=== PATIENT | male | born 1940 | race Caucasian/White ===

== ENCOUNTER → 2018-01-29 | Outpatient (CLI) | payer MEDICARE ==
[~2018-01-29] MED LIST: IOPAMIDOL 370 MG/ML 200 ML INFUS..BTL INJ ONE; SODIUM CHLORIDE 0.9% 50ML 50 ML ONE
[2018-01-29 08:39] LABS: BLOOD UREA NITROGEN 19 mg/dL (7-26); BUN/CREATININE RATIO 23 (6-25); CREATININE, SERUM 0.84 mg/dL (0.72-1.25); EST GLOMERULAR FILTRATION RATE > 60 ML/MIN (60-)
--- NOTE | 2018-01-29 13:18 | Diagnostic Imaging Report ---
CTA of the abdomen and pelvis, with contrast. History: AAA. Comparison: 12/16/2016 Technique: Multidetector CT scanning of the abdomen and pelvis was performed from the level of the lung bases to the inferior pubic ramus, after intravenous administration of 100 cc of Isovue-370. No oral contrast was given. Scanning during the arterial phase was performed. Sagittal and coronal multiplanar reformations were obtained. 3-D postprocessing at a stand-alone workstation was also accomplished. Dose reduction strategy was utilized. DLP: 432.36 mGy-cm Discussion: Abdominal aorta and proximal branches: An infrarenal abdominal aortic aneurysm is present. The opacified lumen of the aneurysm is smaller than when compared to the previous study with more thickness and clot lining. The maximal diameter of the aneurysm measures 4.95 cm in the AP plane (previously at a similar level maximal AP dimension was 4.75 cm). The suprarenal abdominal aorta is within normal limits with patient admitting representative measurement as follows: 2.6 cm at the level of the diaphragmatic hiatus, 2.8 cm at the level of the celiac trunk, 2.4 cm the level of the SMA, and 2.2 cm at the level of the renal arteries. At the level of the renal arteries and below atherosclerotic plaque is present. The celiac trunk and SMA are patent. There is a replaced right hepatic artery. There are single renal arteries bilaterally which patent. The iliac and femoral arteries are normal in size and patent. The right common femoral artery measures 10.7 mm and the left measures 10.2 cm. Abdomen: The liver, gallbladder, biliary tree, spleen and pancreas are normal. Again noted is the left adrenal mass not significantly changed in size. Hyperdense right renal cyst measures 1.5 cm and appears similar in appearance. The hepatic vein, portal vein, and hepatic artery are patent. The stomach, small bowel and large bowel are unremarkable. The soft tissues and osseous structures are normal. There is no evidence of adenopathy or free fluid. The lung bases are clear. Pelvis: The bladder is normal. The prostate is enlarged. There is no evidence of adenopathy or free fluid. IMPRESSION: 1. Fusiform infrarenal abdominal aortic aneurysm has increased over the one-year interval of approximately 2 mm and now has more clot lining/thickness. 2. Little interval change in the left adrenal mass. Signed by: Dr. Bertin Marin DO on 01/29/2018 1:13 PM
== END ==
LOC: CT 07:54
PROVIDERS: ATTEND Internal Medicine Interventional Cardiology
DX: I71.4 Abdominal aortic aneurysm, without rupture (principal)
CPT/HCPCS: 36415; 74174; 82565; 84520; Q9967

== ENCOUNTER → 2018-09-01 | Outpatient (CLI) | payer MEDICARE ==
[2018-09-01 09:39] LABS: CREATININE, SERUM 0.9 mg/dL (0.72-1.25)
== END ==
LOC: CT 08:21
PROVIDERS: ATTEND Internal Medicine Interventional Cardiology
DX: I71.4 Abdominal aortic aneurysm, without rupture (principal)
CPT/HCPCS: 36415; 82565; 84520

== ENCOUNTER → 2018-09-08 | Outpatient (CLI) | payer MEDICARE ==
[~2018-09-08] MED LIST changes: +LIDOCAINE HCL 1% LOCAL INJ 20 ML VIAL ONE; +SODIUM CHLORIDE 0.9% 100 ML 100 ML ONE; -SODIUM CHLORIDE 0.9% 50ML 50 ML ONE
--- NOTE | 2018-09-09 07:13 | Diagnostic Imaging Report ---
EXAM: CTA Abdomen with contrast INDICATION: Follow-up abdominal aortic aneurysm COMPARISON: CTA Abdomen/Pelvis with contrast 01/29/2018. TECHNIQUE: The abdomen was scanned utilizing a multidetector helical scanner from the lung base to the iliac crests after administration of IV Contrast. CTA protocol with only arterial phase imaging performed. Sagittal and coronal multiplanar as well as volume rendering reformations were obtained. IV CONTRAST: 100 cc of Isovue 370 ORAL CONTRAST: Water RADIATION DOSE: Total DLP: 435.6 mGy*cm Dose modulation, iterative reconstruction, and/or weight based adjustment of the mA/kV was utilized to reduce the radiation dose to as low as reasonably achievable. COMPLICATIONS: None Discussion: VASCULAR FINDINGS: A fusiform infrarenal abdominal aortic aneurysm is present. The maximal diameter of the aneurysm measures 5.2 cm in the AP plane (previously 4.95 cm). There is associated mural thrombus, as before. The aneurysm originates approximately 4.7 cm distal to the right renal artery origin. The suprarenal abdominal aorta is within normal limits with unit support representative measurement as follows: 2.7 cm at the level of the diaphragmatic hiatus, 2.8 cm at the level of the celiac trunk, 2.4 cm the level of the SMA, 2.2 cm at the level of the renal arteries, and 2.5 cm at the aortic bifurcation. No evidence of aortic dissection. At the level of the renal arteries and below atherosclerotic plaque is present. The celiac trunk and SMA are patent. There is a replaced right hepatic artery. There are single renal arteries bilaterally which patent. The right and left common iliac arteries measure 1 cm and are partially visualized. NON VASCULAR FINDINGS ABDOMEN: LINES and TUBES: None. LOWER THORAX: Unremarkable HEPATOBILIARY: No focal hepatic lesions. No biliary ductal dilation. GALLBLADDER: No radio-opaque stones or sludge. No wall thickening. SPLEEN: No splenomegaly. Calcified splenic granulomas. PANCREAS: No focal masses or ductal dilatation. ADRENALS: Unchanged 1.7 cm left adrenal adenoma. KIDNEYS/URETERS: Kidneys enhance symmetrically. No hydronephrosis. No solid mass lesions. Unchanged 1.5 cm hyperdense right upper pole renal cyst. No stones. GI TRACT: Partially visualized. No abnormal distention, wall thickening, or evidence of bowel obstruction. LYMPH NODES: No lymphadenopathy. PERITONEUM / RETROPERITONEUM: No free air or fluid. BONES: Unremarkable. SOFT TISSUES: Unremarkable. IMPRESSION: Fusiform infrarenal abdominal aortic aneurysm has slightly increased in size compared to prior CTA on 01/29/2018, now measuring up to 5.2 cm, previously 4.95 cm. Signed by: Dr. Sj Martinez MD on 09/09/2018 7:10 AM
== END ==
LOC: CT 07:54
PROVIDERS: ATTEND Internal Medicine Interventional Cardiology
DX: I71.4 Abdominal aortic aneurysm, without rupture (principal)
CPT/HCPCS: 74175; J2001; Q9967

== ENCOUNTER 2018-10-28 08:31 | Inpatient (IN) | payer MEDICARE ==
[2018-10-27 12:41] LABS: BASOPHILS # (AUTO) 0.1 (0.0-0.1); BASOPHILS % 0.9 % (0.0-1.0); EOSINOPHILS # (AUTO) 0.2 (0.0-0.4); EOSINOPHILS % 2.5 % (0.0-6.0); HEMATOCRIT 44.8 % (38.2-49.6); HEMOGLOBIN 14.5 g/dL (14.0-18.0); LYMPHOCYTES # (AUTO) 1.6 (1.0-3.2); LYMPHOCYTES % 20.9 % (18.0-39.1); MEAN CORPUSCULAR HEMOGLOBIN 27.6 pg (28-32); MEAN CORPUSCULAR HGB CONC 32.4 g/dL (31-35); MEAN CORPUSCULAR VOLUME 85.2 fL (81-99); MONOCYTES # (AUTO) 0.9 (0.2-0.8); MONOCYTES % 11.3 % (4.4-11.3); NEUTROPHILS # (AUTO) 4.9 (2.1-6.9); NEUTROPHILS % 63.9 % (38.7-80.0); PLATELET COUNT 195 x10e3/uL (140-360); RED BLOOD COUNT 5.26 x10e6/uL (4.3-5.7); RED CELL DISTRIBUTION WIDTH 15.1 % (11.7-14.4)
--- NOTE | 2018-10-27 12:55 | Diagnostic Imaging Report ---
EXAMINATION: PA and lateral views of the chest. COMPARISON: CTA of the abdomen for 2018 CLINICAL HISTORY: Preoperative study for urological procedure DISCUSSION: Lungs are well-inflated and without focal consolidation, pleural effusion, or pneumothorax. Tortuous thoracic aorta with otherwise normal heart size. No overt pulmonary edema. No acute osseous abnormality. IMPRESSION: No acute cardiopulmonary abnormalities. Signed by: Dr. Cesar Arriaga M.D. on 10/27/2018 12:51 PM
[~2018-10-28] VITALS: Ht 165.1 cm; Wt 73.0 kg
[~2018-10-28 08:31] MED LIST changes: +FLOMAX0.4 MG PO; -IOPAMIDOL 370 MG/ML 200 ML INFUS..BTL INJ ONE; +ISOSORBIDE DINI20 MG PO; -LIDOCAINE HCL 1% LOCAL INJ 20 ML VIAL ONE; +LISINOPRIL10 MG PO; +OXYBUTYNIN CHLOR5 MG PO; -SODIUM CHLORIDE 0.9% 100 ML 100 ML ONE
--- OUTSIDE RECORDS SUMMARY | 2018-10-28 08:39 | XMS REPORT | Continuity of Care Document ---
Author Author [facility] [place] [facility] Address Unknown Phone Unavailable Problems Problem Status Onset Date Classification Date Reported Comments Source DX: I71.4=ABDOMINAL AORTIC ANEURYSM, WIT Active 10/21/2018 Emilee ABDOMINAL AORTIC ANEURYSM, WITHOUT RUPTU Active [facility] Medications Medication Details Route Status Patient Instructions Ordering Provider Order Date Source Visipaque 320 mg/mL injectable solution 100 mL, Route: IVP, Dosing Weight 87.273, kg, ONCALL, GFR Inactive 10/23/2018 Emilee
--- OUTSIDE RECORDS SUMMARY | 2018-10-28 08:39 | XMS REPORT | Summary of Care ---
Author Author [facility] Organization [facility] Address Unknown Phone Unavailable Encounter MARCE Finney(JEFFRY) [id number] Date(s): 10/23/18 - 10/23/18 [facility] [address] [place] [address]- Discharge Disposition: Home or Self Care Attending Physician: Cameron Beauchamp MD Admitting Physician: Cameron Beauchamp MD Referring Physician: Cameron Beauchamp MD Vital Signs No data available for this section Problem List No data available for this section Allergies, Adverse Reactions, Alerts No Known Medication Allergies Medications Visipaque 320 mg/mL injectable solution 100 mL, Route: IVP, Dosing Weight 87.273, kg, ONCALL, GFR </=45 mL/min, Start date: 10/23/18 9:00:00 CDT, Duration: 1 doses or times Start Date: 10/23/18 Stop Date: 10/23/18 Status: Discontinued Results Most recent to 1 oldest [Reference Range]: eGFR 38 mL/min/1.73m2 1 *NA* (10/23/18 8:30 AM) POC Creatinine 1.7 mg/dL [0.5-1.4 mg/dL] *HI* (10/23/18 8:30 AM) 1Result Comment: The eGFR is calculated using the CKD-EPI formula. In most young, healthy individuals the eGFR will be >90 mL/min/1.73m2. The eGFR declines with age. An eGFR of 60-89 may be normal in some populations, particularly the elderly, for whom the CKD-EPI formula has not been extensively validated. Use of the eGFR is not recommended in the following populations: Individuals with unstable creatinine concentrations, including patients and those with serious co-morbid conditions. Patients with extremes in muscle mass or diet. The data above are obtained from the National Kid[employer] Disease Education Program ( NKDEP) which additionally recommends that when the eGFR is used in patients with extremes of body mass index for purposes of drug dosing, the eGFR should be mul tiplied by the estimated BMI. Immunizations No data available for this section Procedures No data available for this section Social History No data available for this section Assessment and Plan No data available for this section
--- OUTSIDE RECORDS SUMMARY | 2018-10-28 08:39 | XMS REPORT ---
Author Author [facility] Address Unknown Phone Unavailable Care Team Providers Care Training And Development Professional Name Role Phone DAVINA DIXON Unavailable Unavailable PROSPER HAMMOND Unavailable Unavailable Problems This patient has no known problems. Allergies, Adverse Reactions, Alerts This patient has no known allergies or adverse reactions. Medications This patient has no known medications. Encounters Start Date/Time End Date/Time Encounter Type Admission Type Attending Clinicians Care Facility Care Department Encounter ID 2018-10-23 07:38:00 2018-10-23 07:38:00 Outpatient [id number] Results Test Description Test Time Test Comments Text Results Atomic Results Result Comments CHEST 2 VIEWS 2018-10-27 12:49:00 [place] [address] Patient Name: MATTY BROOKE MR #: [id number] : 1940 Age/Sex: 78/M Req #: [id number] [facility] Physician: Ordered by: DAVINA DIXON MD Report #: [id number] Location: OR Room/Bed: Procedure: [id number] DX/CHEST 2 VIEWS Exam Date: 10/27/18 Exam Time: 1210 REPORT STATUS: Signed EXAMINATION: PA and lateral views of the chest. LYNN RISON: CTA of the abdomen for 2018 CLINICAL HISTORY: Preoperative study for urological procedure DISCUSSION: Lungs are well-inflated and without focal consolidation, pleural effusion, or pneumothorax. Tortuous thoracic aorta with otherwise normal heart size. No overt pulmonary edema. No acute osseous abnormality. IMPRESSION: No acute cardiopulmonary abnormalities. Signed by: Dr. Tone Norris M.D. on 10/27/2018 12:51 PM Dictated By: TONE NORRIS MD 1251 Transcribed By: LANI on 10/27/18 1251 COPY TO: DAVINA DIXON MD CTA ABDOMEN 2018-09-08 17:00:00 [facility] [address] [place] [address] Patient Name: MATTY BROOKE MR #: [id number] : 1940 Age/Sex: 78/M Req #: [id number] Adm Physician: Ordered by: PROSPER HAMMOND MD Report #: [id number] Location: CT Room/Bed: Procedure: [id number] CT/CTA ABDOMEN Exam Date: 09/08/18 Exam Time: 0830 REPORT STATUS: Signed EXAM: CTA Abdomen with contrast INDICATION: Follow-up ab dominal aortic aneurysm COMPARISON: CTA Abdomen/Pelvis with contrast 01/29/2018. TECHNIQUE: The abdomen was scanned utilizing a multidetector helical scanner from the lung base to the iliac crests after administration of IV Contrast. CTA protocol with only arterial phase imaging performed. Sagittal and coronal multiplanar as well as volume rendering reformations were obtained. IV CONTRAST: 100 cc of Isovue 370 ORAL CONTRAST: Water RADIATION DOSE: Total DLP: 435.6 mGy*cm Dose modulation, iterative reconstruction, and/or weight based adjustment of the mA/kV was utilized to reduce the radiation dose to as low as reasonably achievable. COMPLICATIONS: None Discussion: VASCULAR FINDINGS: A fusiform infrarenal abdominal aortic aneurysm is present. The maximal diameter of the aneurysm measures 5.2 cm in the AP plane (previously 4.95 cm). There is associated mural thrombus, as before. The aneurysm originates approximately 4.7 cm distal to the right renal artery origin. The suprarenal abdominal aorta is within normal limits with education courses sales representative measurement as follows: 2.7 cm at the level of the diaphragmatic hiatus, 2.8 cm at the level of the celiac trunk, 2.4 cm the level of the SMA, 2.2 cm at the level of the renal arteries, and 2.5 cm at the aortic bifurcation. No evidence of aortic dissection. At the level of the renal arteries and below atherosclerotic plaque is present. The celiac trunk and SMA are patent. There is a replaced right hepatic artery. There are single renal arteries bilaterally which patent. The right and left common iliac arteries measure 1 cm and are partially visualized. NON VASCULAR FINDINGS ABDOMEN: LINES and TUBES: None. LOWER THORAX: Unremarkable HEPATOBILIARY: No focal hepatic lesions. No biliary ductal dilation. GALLBLADDER: No radio- opaque stones or sludge. No wall thickening. SPLEEN: No splenomegaly. Calcified splenic granulomas. PANCREAS: No focal masses or ductal dilatation. ADRENALS: Unchanged 1.7 cm left adrenal adenoma. KIDNEYS/URETERS: Kidneys enhance symmetrically. No hydronephrosis. No solid mass lesions. Unchanged 1.5 cm hyperdense right upper pole renal cyst. No stones. GI TRACT: Partially visualized. No abnormal distention, wall thickening, or evidence of bowel obstruction. LYMPH NODES: No lymphadenopathy. PERITONEUM / RETROPERITONEUM: No free air or fluid. BONES: Unremarkable. SOFT TISSUES: Unremarkable. IMPRESSION: Fusiform infrarenal abdominal aortic aneurysm has slightly increased in size compared to prior CTA on 01/29/2018, now measuring up to 5.2 cm, previously 4.95 cm. Signed by: Dr. Eric Frost MD on 09/09/2018 7:10 AM Dictated By: ERIC FROST MD 9 Transcribed By: LANI on 09/09/18709 COPY TO: PROSPER HAMMOND MD CTA ABD/PELVIS 2018-01-29 11:50:00 [place] [address] Patient Name: MATTY BROOKE MR #: [id number] : 1940 Age/Sex: 78/M [facility] #: [id number] Re #: [id number] [facility] Physician: Ordered by: PROSPER HAMMOND MD Report #: [id number] Location: CT Room/Bed: Procedure: CT/CTA ABD/PELVIS Exam Date: 01/29/18 Exam Time: 905 REPORT STATUS: Signed CTA of the abdomen and pelvis, with contrast. History: AAA. Comparison: 12/16/2016 Technique: Multidetector CT scanning of the abdomen and pelvis was performed from the level of the lung bases to the inferior pubic ramus, after intravenous administration of 100 cc of Isovue-370. No oral contrast was given. Scanning during the arterial phase was performed. Sagittal and coronal multiplanar reformations were obtained. 3-D postprocessing at a stand-alone workstation was also accomplished. Dose reduction strategy was utilized. DLP: 432.36 mGy-cm Discussion: Abdominal aorta and proximal branches: An infrarenal abdominal aortic aneurysm is present. The opacified lumen of the aneurysm is smaller than when compared to the previous study with more thickness and clot lining. The maximal diameter of the aneurysm measures 4.95 cm in the AP plane (previously at a similar level maximal AP dimension was 4.75 cm). The suprarenal abdominal aorta is within normal limits with education courses sales representative measurement as follows: 2.6 cm at the level of the diaphragmatic hiatus, 2.8 cm at the level of the celiac trunk, 2.4 cm the level of the SMA, and 2.2 cm at the level of the renal arteries. At the level of the renal arteries and below atherosclerotic plaque is present. The celiac trunk and SMA are patent. There is a replaced right hepatic artery. There are single renal arteries bilaterally which patent. The iliac and femoral arteries are normal in size and patent. The right common femoral artery measures 10.7 mm and the left measures 10.2 cm. Abdomen: The liver, gallbladder, biliary tree, spleen and pancreas are normal. Again noted is the left adrenal mass not significantly changed in size. Hyperdense right renal cyst measures 1.5 cm and appears similar in appearance. The hepatic vein, portal vein, and hepatic artery are patent. The stomach, small bowel and large bowel are unremarkable. The soft tissues and osseous structures are normal. There is no evidence of adenopathy or free fluid. The lung bases are clear. Pelvis: The bladder is normal. The prostate is enlarged. There is no evidence of adenopathy or free fluid. IMPRESSION: 1. Fusiform infrarenal abdominal aortic aneurysm has increased over the one-year interval of approximately 2 mm and now has more clot lining/thickness. 2. Little interval change in the left adrenal mass. Signed by: Dr. Alexi Marin DO on 01/29/2018 1:13 PM Dictated By: ALEXI MARIN DO 1313 Transcribed By: LANI on 01/29/18 1313 COPY TO: PROSPER HAMMOND MD CTA ABD/PELVIS [place] [address] Patient Name: MATTY BROOKE MR #: [id number] : 1940 Age/Sex: 76/M Req #: [id number] Adm Physician: Ordered by: PROSPER HAMMOND MD Report #: [id number] Location: CT Room/Bed: Procedure: [id number] CT/CTA ABD/PELVIS Exam Date: 12/16/16 Exam Time: 1350 REPORT STATUS: Signed CT scan chest, abdomen and pelvis with and without contrast. December 16, 2016 Clinical history: Thoracic outlet syndrome. Right hand swelling. Technique: Noncontrast and arterial phase protocol CT scan of the chest, abdomen and pelvis was performed after 100 mL Isovue-370 intravenous contrast. No enteric contrast was administered. Coronal, sagittal and axial images are generated from source data. Volume rendered multiplanar images of the arterial tree were generated at a stand-alone off-line workstation under physician supervision Dose: 1969.2 mGy-cm Comparison: March 26, 2011; MRI abdomen April 29, 2016 Findings: Vascular: Aorta diameters: Sinotubular junction: 2.5 cm Ascending thoracic aorta: 3.5 cm Proximal aortic arch: 3.3 cm Distal aortic arch: 2.8 cm Descending thoracic aorta: 2.8 cm Diaphragmatic hiatus: 2.9 cm Level of renal arteries: 2.5 cm Fusiform aneurysm of the infrarenal abdominal aorta beginning approximately 4.5 cm from the origin of the left renal artery. Maximal AP diameter 4.2 cm for length of 6 cm. The thoracic aorta is tortuous. There is mild scattered calcified and noncalcified atheromatous plaque throughout the thoracic and abdominal aorta, predominating in the infrarenal aorta just proximal to the aneurysm. Plaque is nonflow limiting. No intramural hematoma or dissection. Great vessels: Brachiocephalic: Trace origin atherosclerosis; otherwise, normal. Right common carotid: Trace noncalcified, jgz-bswe-khdnyvcm atheromatous plaque. Otherwise, normal. Right subclavian, axillary and imaged brachial artery: Normal Left subclavian: Normal Left common carotid: Trace origin atherosclerosis. Celiac: Normal SMA: Normal CHRISTIAN: Originates at the level of the aneurysm; proximally patent. Renal arteries: Single bilaterally. Normal caliber. Iliacs: Right: Diameter 12 mm. Mild sin-gfcz-mfvvykvr calcified and noncalcified atheromatous plaque. Left: Diameter 12 mm. Mild nonflow limiting plaque. External iliac arteries: Normal caliber bilaterally. Common femoral arteries: Mild posterior predominantly calcification, acc-mcel-ajyqnyxk. Heart: Normal size. Mild left, left anterior descending, right and circumflex coronary calcification. Trace aortic valve calcification. The systemic venous and portal venous system are grossly unremarkable, though nonopacified. Nonvascular findings: Lungs: Normal Pleura: Normal Airways: Normal Lymph nodes: Normal Liver: Grossly normal Gallbladder: Normal Pancreas: Normal Spleen: Normal Adrenal glands: 1.7 cm lipid rich adenoma. Otherwise, normal. Kidneys: 1.5 cm hyperdense right superior pole cyst. Otherwise, normal. Urinary bladder: Normal Prostate and seminal vesicles: Prostate diameter 5.5 cm with mass effect on the bladder base. Otherwise, normal. Bowel: Normal caliber. Normal appendix. Extensive diverticulosis of the descending and sigmoid colon. Peritoneum: Normal Abdominal lymph nodes: Normal Skeleton: Intact. Soft tissues: 3 cm right thyroid nodule and left thyroidectomy. Impression: 1. The great vessels are normal. There is no evidence of arterial stenosis to suggest thoracic outlet syndrome. 2. Fusiform infrarenal abdominal aortic aneurysm with a maximal diameter of 4.2 cm. This has increased in diameter from 3 cm ectasia relative to March 2011. 3. Stable benign, lipid rich left adrenal adenoma. 4. 3 cm right thyroid nodule with left thyroidectomy. Ultrasound is warranted for evaluation based on size, left thyroidectomy and imaging characteristics. 5. Prostatomegaly. This report was generated with voice-recognition technology. Errors in adhesive bandage making operator can occur. Please interpret accordingly and contact a radiologist if there are any questions regarding the report. Signed by: Dr. Keily Gomez M.D. on 12/17/2016 7:58 AM Dictated By: KEILY GOMEZ MD 1026 Transcribed By: LANI on 01/15/17 1026 COPY TO: PROSPER HAMMOND MD CTA CHEST [place] [address] Patient Name: MATTY BROOKE MR #: [id number] : 1940 Age/Sex: 76/M Req #: [id number] Adm Physician: Ordered by: PROSPER HAMMOND MD Report #: [id number] Location: CT Room/Bed: Procedure: [id number] CT/CTA CHEST Exam Date: 12/16/16 Exam Time: 1350 REPORT STATUS: Signed CT scan chest, abdomen and pelvis with and without contrast. December 16, 2016 Clinical history: Thoracic outlet syndrome. Right hand swelling. Technique: Noncontrast and arterial phase protocol CT scan of the chest, abdomen and pelvis was performed after 100 mL Isovue-370 intravenous contrast. No enteric contrast was administered. Coronal, sagittal and axial images are generated from source data. Volume rendered multiplanar images of the arterial tree were generated at a stand-alone off-line workstation under physician supervision Dose: 1969.2 mGy-cm Comparison: March 26, 2011; MRI abdomen April 29, 2016 Findings: Vascular: Aorta diameters: Sinotubular junction: 2.5 cm Ascending thoracic aorta: 3.5 cm Proximal aortic arch: 3.3 cm Distal aortic arch: 2.8 cm Descending thoracic aorta: 2.8 cm Diaphragmatic hiatus: 2.9 cm Level of renal arteries: 2.5 cm Fusiform aneurysm of the infrarenal abdominal aorta beginning approximately 4.5 cm from the origin of the left renal artery. Maximal AP diameter 4.2 cm for length of 6 cm. The thoracic aorta is tortuous. There is mild scattered calcified and noncalcified atheromatous plaque throughout the thoracic and abdominal aorta, predominating in the infrarenal aorta just proximal to the aneurysm. Plaque is nonflow limiting. No intramural hematoma or dissection. Great vessels: Brachiocephalic: Trace origin atherosclerosis; otherwise, normal. Right common carotid: Trace noncalcified, lew-fdvb-htffmafu atheromatous plaque. Otherwise, normal. Right subclavian, axillary and imaged brachial artery: Normal Left subclavian: Normal Left common carotid: Trace origin atherosclerosis. Celiac: Normal SMA: Normal CHRISTIAN: Originates at the level of the aneurysm; proximally patent. Renal arteries: Single bilaterally. Normal caliber. Iliacs: Right: Diameter 12 mm. Mild pqh-zhxo-ksnnfdsj calcified and noncalcified atheromatous plaque. Left: Diameter 12 mm. Mild nonflow limiting plaque. External iliac arteries: Normal caliber bilaterally. Common femoral arteries: Mild posterior predominantly calcification, dfg-tesb-cuoxkyfk. Heart: Normal size. Mild left, left anterior descending, right and circumflex coronary calcification. Trace aortic valve calcification. The systemic venous and portal venous system are grossly unremarkable, though nonopacified. Nonvascular findings: Lungs: Normal Pleura: Normal Airways: Normal Lymph nodes: Normal Liver: Grossly normal Gallbladder: Normal Pancreas: Normal Spleen: Normal Adrenal glands: 1.7 cm lipid rich adenoma. Otherwise, normal. Kidneys: 1.5 cm hyperdense right superior pole cyst. Otherwise, normal. Urinary bladder: Normal Prostate and seminal vesicles: Prostate diameter 5.5 cm with mass effect on the bladder base. Otherwise, normal. Bowel: Normal caliber. Normal appendix. Extensive diverticulosis of the descending and sigmoid colon. Peritoneum: Normal Abdominal lymph nodes: Normal Skeleton: Intact. Soft tissues: 3 cm right thyroid nodule and left thyroidectomy. Impression: 1. The great vessels are normal. There is no evidence of arterial stenosis to suggest thoracic outlet syndrome. 2. Fusiform infrarenal abdominal aortic aneurysm with a maximal diameter of 4.2 cm. This has increased in diameter from 3 cm ectasia relative to March 2011. 3. Stable benign, lipid rich left adrenal adenoma. 4. 3 cm right thyroid nodule with left thyroidectomy. Ultrasound is warranted for evaluation based on size, left thyroidectomy and imaging characteristics. 5. Prostatomegaly. This report was generated with voice-recognition technology. Errors in adhesive bandage making operator can occur. Please interpret accordingly and contact a radiologist if there are any questions regarding the report. Signed by: Dr. Keily Gomez M.D. on 12/17/2016 7:58 AM Dictated By: KEILY GOMEZ MD 1026 Transcribed By: LANI on 01/15/17 1026 COPY TO: PROSPER HAMMOND MD
[2018-10-28] MEDS ORDERED: CEFTRIAXONE SOD 1 GM/NS 50 ML 50 ML IV ONE (08:54)
[2018-10-28] MEDS ORDERED: GENTAMICIN 80MG/NS 100 ML 200 ML IV ONE (08:54)
[2018-10-28] MEDS ORDERED: SIMVASTATIN40 MG PO (09:10)
[2018-10-28] MEDS ORDERED: FINASTERIDE5 MG PO (09:10)
[2018-10-28] MEDS ORDERED: BELLADONNA/OPIUM 60 MG SUPP PR ONE (10:33)
[2018-10-28] MEDS ORDERED: IOPAMIDOL 610MG/1ML 300 MG/ML VIAL IV ONE (10:33)
[2018-10-28] MEDS ORDERED: FUROSEMIDE INJ 10 MG/ML 4 ML VIAL ONE (12:29)
[2018-10-28] MEDS ORDERED: ACETAMINOPHEN/CODEINE 300MG - 30MG TAB PO PRN (12:45)
[2018-10-28] MEDS ORDERED: ONDANSETRON HCL INJ 2MG/ML 2ML 2 MG/ML VIAL IV PRN (12:45)
[2018-10-28] MEDS ORDERED: DIPHENHYDRAMINE HCL 25 MG CAP PO PRN (12:45)
[2018-10-28] MEDS ORDERED: DIPHENHYDRAMINE HCL INJ 50 MG/ML VIAL IM PRN (12:45)
[2018-10-28] MEDS ORDERED: BELLADONNA/OPIUM 30 MG SUPP RC PRN (12:45)
[2018-10-28] MEDS ORDERED: FENTANYL CITRATE/PF 100MCG/2 ML INJ ONE ×3 (12:54→19:37)
[2018-10-28 13:38] VITALS: BP 126/79
--- NOTE | 2018-10-28 13:38 | NUR ---
RECEIVED PT TO FLOOR AA0X3 PT IS C/O BURNING TO URETHRAL SITE. PYRIDIUM WILL BE GIVEN FOR COMFORT PT HAS A RIGHT HAND 20 G WITH LR RUNNING, SITE IS CLEAN AND DRY PT HAS A JACINTO CATH ON CBI , JACINTO BAG IS LOOKING PINK/RED CLEAR. NO CLOTS NOTED PT AWARE OF PLAN OF CARE , IS AT BEDSIDE, WILL CONTINUE TO MONITOR PT CLOSELY SIDE RAILSX2, BED WHEELS LOCKED, CALL LIGHT IS WITHIN EASY REACH, INSTRUCTED TO CALL FOR ASSISTANCE IF NEEDED
[2018-10-28 13:50] VITALS: BP 126/79
[2018-10-28 14:06] LABS: BASOPHILS # (AUTO) 0.1 (0.0-0.1); BASOPHILS % 0.7 % (0.0-1.0); EOSINOPHILS # (AUTO) 0.1 (0.0-0.4); EOSINOPHILS % 1.9 % (0.0-6.0); HEMATOCRIT 47.6 % (38.2-49.6); HEMOGLOBIN 15.3 g/dL (14.0-18.0); LYMPHOCYTES # (AUTO) 1.2 (1.0-3.2); LYMPHOCYTES % 17.8 % (18.0-39.1); MEAN CORPUSCULAR HEMOGLOBIN 28.1 pg (28-32); MEAN CORPUSCULAR HGB CONC 32.1 g/dL (31-35); MEAN CORPUSCULAR VOLUME 87.3 fL (81-99); MONOCYTES # (AUTO) 0.3 (0.2-0.8); MONOCYTES % 4.2 % (4.4-11.3); NEUTROPHILS % 74.8 % (38.7-80.0); PLATELET COUNT 175 x10e3/uL (140-360); RED BLOOD COUNT 5.45 x10e6/uL (4.3-5.7); RED CELL DISTRIBUTION WIDTH 15.3 % (11.7-14.4)
[2018-10-28 14:25] LABS: ANION GAP 13.7 mmol/L (8-16); BLOOD UREA NITROGEN 15 mg/dL (7-26); BUN/CREATININE RATIO 19 (6-25); CALCIUM 9.3 mg/dL (8.4-10.2); CARBON DIOXIDE 26 mmol/L (22-29); CHLORIDE 107 mmol/L (98-107); EST GLOMERULAR FILTRATION RATE > 60 ML/MIN (60-); GLUCOSE 112 mg/dL (74-118); POTASSIUM 3.7 mmol/L (3.5-5.1); SODIUM 143 mmol/L (136-145)
[2018-10-28] MEDS ORDERED: BELLADONNA/OPIUM 60 MG SUPP PR PRN (14:30)
[2018-10-28] MEDS: D5.45%NS/KCL 20MEQ 1,000 ML IV SCH ×2 (14:45→21:12)
[2018-10-28] MEDS: PHENAZOPYRIDINE HCL 100 MG TAB PO SCH ×2 (15:36→17:21)
[2018-10-28] MEDS ORDERED: ISOSORBIDE MONO20 MG PO (15:59)
[2018-10-28 16:30] VITALS: BP 135/81
--- NOTE | 2018-10-28 16:57 | History and Physical ---
CHIEF COMPLAINT: "I had prostate surgery today." HISTORY OF PRESENT ILLNESS: This is a 78-year-old white man, who underwent cystoscopy with TURP and bladder tumor resection. He has known history of bladder cancer that was first diagnosed in 2010. The patient states this is his third bladder tumor resection surgery. The patient voices no complaints. BUN and creatinine on admission are 15 and 0.8 respectively. Today, his hemoglobin is 15.3 g/dL, this is after the surgery. The patient voices no complaints. REVIEW OF SYSTEMS: GENERAL: Weight has been stable. No fever or chills. HEENT: No headaches. No vision changes. CARDIOVASCULAR/RESPIRATORY: No chest pain. No shortness of breath or cough. GASTROINTESTINAL: No nausea, vomiting, or constipation. GENITOURINARY: The patient has Ruffin catheter in place. The patient states he urinates frequently. NEUROMUSCULAR: No limb weakness or numbness. ALLERGIES: NO KNOWN DRUG ALLERGIES. PAST MEDICAL HISTORY: 1. Bladder CA (diagnosed in 2010). 2. Benign prostatic hypertrophy. 3. Hypertensive heart disease. 4. Hyperlipidemia. 5. Abdominal aortic aneurysm. 6. Tobacco abuse. FAMILY HISTORY: Father of prostate cancer. Mother had atherosclerosis. SOCIAL HISTORY: He is . His is retired. He smokes tobacco. Denies alcohol use. MEDICATIONS: Home medications are: 1. Oxybutynin 5 mg b.i.d. 2. Finasteride 5 mg every night. 3. Isosorbide mononitrate 30 mg daily. 4. Lisinopril 20 mg daily. 5. Simvastatin 40 mg at bedtime. 6. Tamsulosin 0.4 mg at bedtime. SURGICAL HISTORY: 1. TURP and bladder tumor resection with cystoscopy today. 2. Bladder tumor resection twice previously. 3. Left heart catheterization. PHYSICAL EXAMINATION: GENERAL: He is awake, alert, and fluent. His at bedside. VITAL SIGNS: Blood pressure is 126/78, pulse 68, respiratory rate 18, and temperature 96.5. Height 5 feet 6 inches, weight 160 pounds, and BMI 25. INTEGUMENT: Skin is warm and dry. No pallor, jaundice, or diaphoresis. HEENT: The anterior sclerae with moist mucous membranes. NECK: Supple. CARDIOVASCULAR: Distant heart sounds. Regular rate and rhythm. LUNGS: No rales. No rhonchi or wheezes. ABDOMEN: Soft. He has bowel sounds. EXTREMITIES: No deformity. He has sequential compression devices on his lower legs. NEUROLOGIC: Intact. DIAGNOSES: 1. Benign prostatic hypertrophy. 2. Bladder cancer. 3. Hypertensive heart disease. 4. Status post cystoscopy with transurethral resection of prostate and bladder tumor resection. 5. Tobacco abuse. PLAN: 1. Recommend tobacco cessation. 2. We will follow urology's recommendation in regard to restarting home medications. 3. Follow hemoglobin and hematocrit. 4. Follow electrolytes and renal function. 5. We will hold aspirin for now. I spent 35 minutes in the care of this patient. MD RANJAN Mccloud/GEORGES /[id number] MTDD
[2018-10-28] MEDS: DOCUSATE SODIUM 100 MG CAP PO SCH (17:21)
[2018-10-28] MEDS: OXYBUTYNIN CHLORIDE 5 MG TAB PO SCH (17:21)
[2018-10-28] MEDS ORDERED: EPHEDRINE SULFATE INJ 50 MG/10 ML SYR ONE (18:41)
--- NOTE | 2018-10-28 19:14 | NUR ---
RECEIVED PT RESTING IN BED.NO S/S OF DISTRESS NOTED.RESPIRATIONS EVEN/NON LABORED.PT ON CONTINUOUS BLADDER IRRIGATION,JACINTO CATHETER INTACT AND DRAINING BRIGHT RED COLORED OUTPUT.PT DENIES ANY NEEDS AT THIS TIME.INSTRUCTED PT TO CALL FOR ASSISTANCE NEEDED BY USING CALL LIGHT.PT VERBALIZED UNDERSTANDING.BED IN LOWEST/LOCKED POSITION.CALL LIGHT WITHIN EASY REACH.
[2018-10-28] MEDS ORDERED: MIDAZOLAM HCL 2 MG/2 ML VIAL ONE (19:34)
[2018-10-28 20:00] VITALS: BP 130/74
[2018-10-28 21:12] VITALS: BP 130/74
[2018-10-28] MEDS: FINASTERIDE 5 MG TAB PO SCH (21:12)
[2018-10-28] MEDS: TAMSULOSIN HCL 0.4 MG CAP PO SCH (21:12)
[2018-10-28] MEDS: SIMVASTATIN 40 MG TAB PO SCH (21:12)
[2018-10-29] VITALS (8 sets, daily range): BP systolic 116–133; BP diastolic 62–72
[2018-10-29] MEDS: D5.45%NS/KCL 20MEQ 1,000 ML IV SCH ×3 (05:28→18:53)
[2018-10-29 05:58] LABS: BASOPHILS # (AUTO) 0.1 (0.0-0.1); BASOPHILS % 0.6 % (0.0-1.0); EOSINOPHILS # (AUTO) 0.5 (0.0-0.4); EOSINOPHILS % 4.2 % (0.0-6.0); HEMATOCRIT 40.7 % (38.2-49.6); HEMOGLOBIN 13.3 g/dL (14.0-18.0); LYMPHOCYTES # (AUTO) 1.7 (1.0-3.2); LYMPHOCYTES % 14.9 % (18.0-39.1); MEAN CORPUSCULAR HEMOGLOBIN 27.6 pg (28-32); MEAN CORPUSCULAR HGB CONC 32.7 g/dL (31-35); MEAN CORPUSCULAR VOLUME 84.4 fL (81-99); MONOCYTES % 8.9 % (4.4-11.3); NEUTROPHILS # (AUTO) 7.9 (2.1-6.9); NEUTROPHILS % 70.9 % (38.7-80.0); PLATELET COUNT 190 x10e3/uL (140-360); RED BLOOD COUNT 4.82 x10e6/uL (4.3-5.7); RED CELL DISTRIBUTION WIDTH 14.7 % (11.7-14.4)
[2018-10-29 06:25] LABS: ALANINE AMINOTRANSFERASE 15 IU/L (0-55); ALBUMIN 2.5 g/dL (3.5-5.0); ALBUMIN/GLOBULIN RATIO 0.9 (0.8-2.0); ALKALINE PHOSPHATASE 66 IU/L (40-150); ANION GAP 12.1 mmol/L (8-16); BLOOD UREA NITROGEN 11 mg/dL (7-26); BUN/CREATININE RATIO 15 (6-25); CALCIUM 8.5 mg/dL (8.4-10.2); CARBON DIOXIDE 26 mmol/L (22-29); CHLORIDE 102 mmol/L (98-107); CREATININE, SERUM 0.75 mg/dL (0.72-1.25); EST GLOMERULAR FILTRATION RATE > 60 ML/MIN (60-); GLUCOSE 124 mg/dL (74-118); POTASSIUM 4.1 mmol/L (3.5-5.1); SODIUM 136 mmol/L (136-145)
--- NOTE | 2018-10-29 06:53 | NUR ---
REPORT GIVEN TO ONCOMING NURSE,WALKING ROUNDS MADE.PT RESTING IN BED WITH NO S/S OF DISTRESS.
--- NOTE | 2018-10-29 07:05 | NUR ---
PT IS RESTING IN BED AA0X3 PT HAS A RIGHT HAND 20 G WITH NS RUNNING, SITE IS CLEAN AND DRY PT HAS A JACINTO CATH ON CBI , JACINTO BAG IS LOOKING PINK/ORANGE CLEAR. NO CLOTS NOTED PT AWARE OF PLAN OF CARE ,WILL CONTINUE TO MONITOR PT CLOSELY SIDE RAILSX2, BED WHEELS LOCKED, CALL LIGHT IS WITHIN EASY REACH, INSTRUCTED TO CALL FOR ASSISTANCE IF NEEDED
[2018-10-29] MEDS: DOCUSATE SODIUM 100 MG CAP PO SCH ×2 (08:22→17:03)
[2018-10-29] MEDS: PHENAZOPYRIDINE HCL 100 MG TAB PO SCH ×3 (08:22→17:03)
[2018-10-29] MEDS: CEFTRIAXONE SOD 1 GM/NS 50 ML 50 ML IV SCH (08:22)
[2018-10-29] MEDS: OXYBUTYNIN CHLORIDE 5 MG TAB PO SCH ×2 (08:22→17:03)
[2018-10-29] MEDS: LISINOPRIL 20 MG TAB PO SCH (08:22)
[2018-10-29] MEDS: ISOSORBIDE MONONITRATE 20 MG TAB PO SCH (08:23)
[2018-10-29] MEDS ORDERED: LISINOPRIL 10 MG TAB PO SCH (09:00)
[2018-10-29] MEDS ORDERED: ONDANSETRON HCL 4 MG ORAL DISINTEGRATING TAB PO PRN (10:30)
--- NOTE | 2018-10-29 13:58 | Operative Report ---
DATE OF PROCEDURE: 10/28/2018 SURGEON: Alfred Munson MD PREOPERATIVE DIAGNOSES: 1. Recurrent bladder tumors. 2. Obstructive benign prostatic hyperplasia. 3. Vesicoureteral reflux. POSTOPERATIVE DIAGNOSES: 1. Recurrent bladder tumors. 2. Obstructive benign prostatic hyperplasia. 3. Vesicoureteral reflux. OPERATION PERFORMED: 1. Cystourethroscopy with bilateral ureteral catheterization and retrograde ureteropyelography (separate procedure performed to evaluate the upper tract in light of the vesicoureteral reflux. 2. Interpretation of retrograde ureteropyelography. 3. Cystourethroscopy with transurethral resection of bladder tumors totaling well over 5 cm in diameter. 4. Cystourethroscopy with transurethral resection of the prostate (separate stage procedure performed for the obstructive BPH). ANESTHESIA: General. COMPLICATIONS: None. CLINICAL SUMMARY: Marco A Fuentes is a 78-year-old male with long-standing bladder cancer and BPH. The patient does have a history of having undergone a transurethral prostatectomy. As a first stage, the patient has done well for sometime. However, he has had residual BPH and regrowth of BPH caving in and obstructing his prostate bed and decreasing his urinary force of stream and his voiding efficiency. The patient has had bladder cancers resected and has had his right intramural ureter partially resected this has led to right-sided vesicoureteral reflux and hydronephrosis. Based on office cystoscopy, he was found to have recurrent papillary lesions in his bladder and he was planned on having this procedure a number of months ago. This has been delayed by cardiac clearance and other issues that the patient was addressing. He understands the risks of bleeding, infection, injury to adjacent structures, incontinence, impotence, need for additional procedures, and elected to proceed. OPERATIVE PROCEDURE IN DETAIL: Informed consent was verified. Marco A Fuentes was properly identified, taken to the operating room, placed on the cystoscopy table in supine position. Anesthesia was uneventfully begun. The patient was then carefully and gently repositioned in dorsal lithotomy position with all pressure points well padded. His genitalia were prepared and draped in usual sterile fashion. The cystoscope sheath with the visual obturator in place was atraumatically inserted into the patient's urethra, it was guided down the unremarkable distal urethra to the bulbar region, where there was a short, but soft bulbar urethral stricture. The stricture was dilated with the cystoscope sheath and the visual obturator was then passed through normal sphincteric region and went through the prostate bed, which was significant for having some fine papillary lesions. The distal prostate was obstructed by caving in prostatic tissue. The apical region was obstructed and there was some kissing lateral lobes more proximal in the apex. The proximal portion of the prostatic bed was wide open, although it did exhibit some papillary lesions in the prostatic urethra, went to the patient's bladder and it was drained. Panendoscopy revealed an erythematous patch lateral to the left ureteral orifice, which was normal orifice. The right ureteral orifice was laterally displaced, it was very open. There were several patches of abnormal appearing mucosa that consistent with possible recurrent cancer on posterior wall in several locations. An 8-Gabonese catheter was used to cannulate each ureter and retrograde ureteropyelograms were performed. Interpretation of retrograde ureteropyelography: Contrast was instilled in retrograde fashion bilaterally. The right side exhibited more fullness compared to the left side. Both ureters were dilated down to the ureterovesical junction consistent with a very thickened urinary bladder from long-standing obstructive BPH. The nevertheless unobstructed drainage was observed fluoroscopically bilaterally. There were no upper tract lesions nor any stones could be visualized. Cold cup biopsy forceps were then utilized to take biopsies of every patch of bladder cancer and within the bladder, we also did separate biopsies of the prostatic urethral papillary lesions. There was a small stone within the bladder that was evacuated as well. We atraumatically placed a resectoscope sheath further dilating the bulbar urethral stricture gently. We then proceeded with fulgurating and vaporizing all visible areas of bladder tumor patches. No residual lesions were left over within the bladder noted in the prostate bed. Transurethral resection of the prostate was then carried out from the bladder neck tube, but never passed through the verumontanum and down the surgical capsule. We utilized a bipolar electrode. cautery was utilized to achieve hemostasis. All chips were evacuated. A Ruffin catheter was in place, was placed on continuous irrigation with relatively clear efflux. A belladonna and opium suppository were placed revealing a large 50 g prostate, smooth nonfunctional and without any nodules. The patient was uneventfully reversed from anesthesia and taken to recovery room in stable condition. There were no complications of the procedure. He tolerated the procedure well. We will proceed with routine postoperative care and of course lifelong urological followup. Any further management will be dependent on the pathology results. MD MARLA Guerra/GEORGES /[id number]
[2018-10-29] MEDS: FINASTERIDE 5 MG TAB PO SCH (20:48)
[2018-10-29] MEDS: TAMSULOSIN HCL 0.4 MG CAP PO SCH (20:48)
[2018-10-29] MEDS: SIMVASTATIN 40 MG TAB PO SCH (20:48)
[2018-10-30] VITALS: BP 131/87
--- NOTE | 2018-10-30 00:24 | Consultation ---
DATE OF CONSULTATION: 10/29/2018 Cardiology Consult Note REASON FOR CONSULT: Abdominal aortic aneurysm. CHIEF COMPLAINT: Hematuria. HISTORY OF PRESENT ILLNESS: A 78-year-old man, underwent cystoscopy, TURP and bladder tumor resection, known history of bladder cancer first diagnosed in 2010. This is a 3rd tumor resection surgery. Denies any ongoing complaints. He has history of abdominal aortic aneurysm that measures 5.2 cm on most recent studies pending treatment by Vascular Surgery as an outpatient. REVIEW OF SYSTEMS: As above otherwise negative. ALLERGIES: NO KNOWN DRUG ALLERGIES. PAST MEDICAL HISTORY: 1. Bladder cancer. 2. Benign prostatic hypertrophy. 3. Hypertension. 4. Hyperlipidemia. 5. Abdominal aortic aneurysm. FAMILY HISTORY: No family history of early CAD or sudden cardiac . SOCIAL HISTORY: He does not smoke, drink, or abuse drugs. HOME MEDICATIONS: Please see MAR for home medications. PHYSICAL EXAMINATION: VITAL SIGNS: Temperature afebrile, pulse 69, respiratory rate 17, blood pressure 131/71, saturating 96% on nasal cannula. GENERAL: Elderly man, in no acute distress. CARDIOVASCULAR: Regular rate and rhythm. No murmurs, rubs, or gallops. LUNGS: Clear to auscultation bilaterally. ABDOMEN: Soft, nontender, nondistended. NEURO AND PSYCH: Alert and oriented to person, place, and time. Normal affect. INPATIENT MEDICATIONS: Reviewed. LABORATORY DATA: Reviewed. TELEMETRY DATA: Reviewed shows normal sinus rhythm. ASSESSMENT: 1. Abdominal aortic aneurysm. 2. Hypertension. 3. Hyperlipidemia. 4. Status post TURP in the bladder resection. PLAN: Continue current cardiovascular medications. The patient is asymptomatic from cardiovascular standpoint once he recovers from recent surgery. He will follow up for outpatient ER. Thank you for this consult. We will continue to follow. MD MARCELLA Waddell/GEORGES /[id number]
[2018-10-30 04:00] VITALS: BP 122/63
[2018-10-30 06:36] LABS: BASOPHILS # (AUTO) 0.1 (0.0-0.1); BASOPHILS % 0.6 % (0.0-1.0); EOSINOPHILS # (AUTO) 0.8 (0.0-0.4); EOSINOPHILS % 8.1 % (0.0-6.0); HEMATOCRIT 45.1 % (38.2-49.6); HEMOGLOBIN 14.4 g/dL (14.0-18.0); LYMPHOCYTES # (AUTO) 1.9 (1.0-3.2); LYMPHOCYTES % 17.9 % (18.0-39.1); MEAN CORPUSCULAR HEMOGLOBIN 27.3 pg (28-32); MEAN CORPUSCULAR HGB CONC 31.9 g/dL (31-35); MEAN CORPUSCULAR VOLUME 85.6 fL (81-99); MONOCYTES % 9.7 % (4.4-11.3); NEUTROPHILS # (AUTO) 6.6 (2.1-6.9); PLATELET COUNT 198 x10e3/uL (140-360); RED BLOOD COUNT 5.27 x10e6/uL (4.3-5.7); RED CELL DISTRIBUTION WIDTH 14.9 % (11.7-14.4)
--- NOTE | 2018-10-30 07:00 | NUR ---
Dr. Bradshaw rounded and spoke with the pt. and told him that discharge is dependent upon Dr. Munson. The pt's urine is clear yellow and no clots noted.
[2018-10-30 07:10] LABS: ANION GAP 12.1 mmol/L (8-16); BLOOD UREA NITROGEN 11 mg/dL (7-26); BUN/CREATININE RATIO 14 (6-25); CALCIUM 8.9 mg/dL (8.4-10.2); CARBON DIOXIDE 27 mmol/L (22-29); CHLORIDE 100 mmol/L (98-107); EST GLOMERULAR FILTRATION RATE > 60 ML/MIN (60-); GLUCOSE 95 mg/dL (74-118); POTASSIUM 4.1 mmol/L (3.5-5.1); SODIUM 135 mmol/L (136-145)
--- NOTE | 2018-10-30 07:16 | NUR ---
REPORT GIVEN TO ONCOMING NURSE,WALKING ROUNDS DONE.PT RESTING IN BED WITH NO S/S OF DISTRESS.
[2018-10-30 08:00] VITALS: BP 135/71
[2018-10-30 08:12] VITALS: BP 135/71
[2018-10-30] MEDS: CEFTRIAXONE SOD 1 GM/NS 50 ML 50 ML IV SCH (08:14)
[2018-10-30] MEDS: DOCUSATE SODIUM 100 MG CAP PO SCH (08:14)
[2018-10-30] MEDS: OXYBUTYNIN CHLORIDE 5 MG TAB PO SCH (08:14)
[2018-10-30] MEDS: LISINOPRIL 20 MG TAB PO SCH (08:15)
[2018-10-30] MEDS: ISOSORBIDE MONONITRATE 20 MG TAB PO SCH (08:15)
[2018-10-30] MEDS: PHENAZOPYRIDINE HCL 100 MG TAB PO SCH (08:15)
[2018-10-30] MEDS: D5.45%NS/KCL 20MEQ 1,000 ML IV SCH (08:15)
--- NOTE | 2018-10-30 10:48 | NUR ---
IMM EXPLAINED TO PT, SIGNED BY PT AND PLACED IN CHART COPY TO PT IN CARE TRANSITIONS FOLDER
--- NOTE | 2018-10-30 11:00 | NUR ---
The pt. was discharged home post instruction to change the cath from leg bag to bedside drainage. Discharge instructions and follow up received as well.
--- NOTE | 2018-10-30 11:13 | Progress Note ---
DATE: 10/30/2018 Cardiology Progress Note SUBJECTIVE: No major events overnight. Resting comfortably in bed. OBJECTIVE: VITAL SIGNS: Temperature afebrile, pulse 60, respiratory rate 18, blood pressure 135/71, and saturating 95% on room air. GENERAL: Elderly white man, in no acute distress. CARDIOVASCULAR: Regular rate and rhythm. No murmurs, rubs, or gallops. LUNGS: Clear to auscultation bilaterally. ABDOMEN: Soft, nontender, and nondistended. NEUROLOGIC AND PSYCHIATRIC: Alert and oriented to person, place, and time. Normal affect. INPATIENT MEDICATIONS: Reviewed. LABORATORY DATA: Reviewed. TELEMETRY DATA: Reviewed, shows normal sinus rhythm. ASSESSMENT: 1. Abdominal aortic aneurysm 5.2 cm. 2. Hypertension. 3. Hyperlipidemia. 4. Status post transurethral resection of the prostate and bladder resection. PLAN: Continue current cardiovascular medications. The patient is doing well postoperatively. Outpatient followup for abdominal aortic aneurysm. Thank you for this consult. We will continue to follow. MD MARCELLA Waddell/RAMSESL /[id number]
--- NOTE | 2018-11-01 14:14 | NUR ---
Dictated DC summary: [id number]
--- NOTE | 2018-11-01 15:02 | Discharge Summary ---
ADMITTING DIAGNOSES: 1. Bladder tumor. 2. Benign prostatic hypertrophy. 3. Hypertensive heart disease. 4. Tobacco abuse. 5. Abdominal aortic aneurysm. DISCHARGE DIAGNOSES: 1. Status post TURP and bladder tumor resection. 2. Hypertensive heart disease. 3. Hyperlipidemia. 4. Tobacco abuse. 5. Abdominal aortic aneurysm 5.2 cm. HOSPITAL COURSE: This is a 78-year-old white man, who has known history of abdominal aortic aneurysm 5.2 cm, hypertensive heart disease, hyperlipidemia, and tobacco abuse. He has also history of bladder cancer. History of benign prostatic hypertrophy. During this hospitalization, the patient was seen by Urology, Dr. Alfred Munson who performed successful TURP as well as bladder tumor resection. His hospitalization was unremarkable. After the surgery, the patient received continuous bladder irrigation, which he tolerated well. On the day of discharge, the urine was yellow and no longer showed any evidence of blood or blood clots. During this hospital stay, he is also seen by his industrial maintenance millwright, Dr. Jaron Ruano, who assessed the patient for his stable 5.2 cm abdominal aortic aneurysm. According to the patient, this abdominal aortic aneurysm will be repaired endovascularly in the near future. CONDITION ON DISCHARGE: Stable. DISCHARGE MEDICATIONS: 1. Oxybutynin 5 mg b.i.d. 2. Finasteride 5 mg daily. 3. Isosorbide mononitrate 30 mg daily. 4. Lisinopril 20 mg daily. 5. Simvastatin 40 mg q.h.s. 6. Tamsulosin 0.4 mg q.h.s. 7. Tylenol No. 3, one pill every 4 hours p.r.n. pain, 20 prescribed, no refills. 8. Pyridium 100 mg t.i.d. for three days. FOLLOWUP INSTRUCTIONS: The patient instructed to follow up with Dr. Munson within two weeks and with Dr. Ruano, the industrial maintenance millwright within two weeks. The patient instructed to follow up with new primary care physician namely myself, Dr. Héctor Bradshaw within 3 to 4 weeks. MD RANJAN Mccloud/GEORGES /[id number] cc: MD Jaron Guerra MD
== END 2018-10-30 10:59 | disposition home or self-care (01) | DRG 666 ==
LOC: OR 08:31 → PACU V 12:38 → MED/SURG 13:58
PROVIDERS: ADMIT Internal Medicine; ATTEND Internal Medicine
PROC: 0TBB8ZZ Excision of Bladder, Via Natural or Artificial Opening Endoscopic (ICD-10-PCS; principal; 2018-10-28 11:00)
PROC: 0VB08ZZ Excision of Prostate, Via Natural or Artificial Opening Endoscopic (ICD-10-PCS; 2018-10-28 11:00)
DX: C67.9 Malignant neoplasm of bladder, unspecified (principal); N13.8 Other obstructive and reflux uropathy; I11.9 Hypertensive heart disease without heart failure; Z72.0 Tobacco use; I71.4 Abdominal aortic aneurysm, without rupture; E78.5 Hyperlipidemia, unspecified; N13.70 Vesicoureteral-reflux, unspecified; N40.1 Benign prostatic hyperplasia with lower urinary tract symptoms; R39.12 Poor urinary stream; I25.10 Atherosclerotic heart disease of native coronary artery without angina pectoris; Z91.041 Radiographic dye allergy status; Z71.6 Tobacco abuse counseling
CPT/HCPCS: 36415; 71046; 74420; 80048; 80053; 83735; 85025; 88300; 88305; 88342; 93005; J0696; J1580; J1940; J2250

== ENCOUNTER → 2019-10-15 | Day surgery (SDC) | payer MEDICARE, OTHER ==
--- NOTE | 2019-10-12 11:50 | Diagnostic Imaging Report ---
EXAMINATION: CHEST 2 VIEWS INDICATION: Pre-operative COMPARISON: None FINDINGS: LINES/TUBES:None LUNGS:The lungs are well-inflated. No focal consolidation or pulmonary edema. PLEURA:No pleural effusion or pneumothorax. MEDIASTINUM:The cardiomediastinal silhouette appears normal in size and shape. Atherosclerotic calcifications of the thoracic aorta. BONES/SOFT TISSUES:No acute osseous injury. ABDOMEN:No free air under the diaphragm. IMPRESSION: No focal pneumonia or pulmonary edema. Signed by: Festus Heller MD on 10/12/2019 11:46 AM
[2019-10-12 12:09] LABS: BASOPHILS # (AUTO) 0.1 (0.0-0.1); BASOPHILS % 0.9 % (0.0-1.0); EOSINOPHILS # (AUTO) 0.3 (0.0-0.4); HEMATOCRIT 48.3 % (38.2-49.6); HEMOGLOBIN 15.6 g/dL (14.0-18.0); LYMPHOCYTES # (AUTO) 2.6 (1.0-3.2); LYMPHOCYTES % 34.2 % (18.0-39.1); MEAN CORPUSCULAR HEMOGLOBIN 27.9 pg (28-32); MEAN CORPUSCULAR HGB CONC 32.3 g/dL (31-35); MEAN CORPUSCULAR VOLUME 86.3 fL (81-99); MONOCYTES # (AUTO) 0.7 (0.2-0.8); MONOCYTES % 9.4 % (4.4-11.3); NEUTROPHILS # (AUTO) 3.8 (2.1-6.9); NEUTROPHILS % 51.2 % (38.7-80.0); PLATELET COUNT 153 x10e3/uL (140-360); RED CELL DISTRIBUTION WIDTH 14.6 % (11.7-14.4)
[2019-10-12 12:42] LABS: ALANINE AMINOTRANSFERASE 10 IU/L (0-55); ALBUMIN 3.8 g/dL (3.5-5.0); ALBUMIN/GLOBULIN RATIO 1.4 (0.8-2.0); ALKALINE PHOSPHATASE 63 IU/L (40-150); ANION GAP 10.9 mmol/L (8-16); BLOOD UREA NITROGEN 17 mg/dL (7-26); BUN/CREATININE RATIO 21 (6-25); CALCIUM 9.1 mg/dL (8.4-10.2); CARBON DIOXIDE 23 mmol/L (22-29); CHLORIDE 107 mmol/L (98-107); CREATININE, SERUM 0.81 mg/dL (0.72-1.25); EST GLOMERULAR FILTRATION RATE > 60 ML/MIN (60-); GLUCOSE 89 mg/dL (74-118); POTASSIUM 3.9 mmol/L (3.5-5.1); SODIUM 137 mmol/L (136-145)
[~2019-10-15] MED LIST changes: +ACETAMINOPHEN325 M1 PO; +ASPIR 8181 MG PO; +B&O 60MG R/S 60 MG SUPP PR ONE; +CEFTRIAXONE SOD 1 GM/NS 50 ML 50 ML IV ONE; +DEXAMETHASONE SOD PHOS INJ 4 MG/ML VIAL ONE; +ETOMIDATE 2 MG/ML 10 ML INJ IV ONE; +FINASTERIDE5 MG PO; +IOPAMIDOL 300MG/ML 50ML INFUS..BTL IV ONE; +ISOSORBIDE MONO20 MG PO; +LIDOCAINE HCL 2% LOCAL INJ 5 ML SDV VIAL INJ ONE; +ONDANSETRON HCL INJ 2MG/ML 2ML 2 MG/ML VIAL ONE; +PLAVIX75 MG PO; +SEVOFLURANE INHAL SOLN 250 ML PEN BTL ONE; +SIMVASTATIN40 MG PO
[2019-10-15 16:25] VITALS: BP 145/81
--- NOTE | 2019-10-17 22:20 | Operative Report ---
DATE OF PROCEDURE: 10/15/2019 SURGEON: Alfred Munson MD PREOPERATIVE DIAGNOSES: 1. Bladder cancer. 2. Hematuria. 3. Right-sided vesicoureteric reflux. 4. Urethral stricture disease. POSTOPERATIVE DIAGNOSES: 1. Bladder cancer. 2. Hematuria. 3. Right-sided vesicoureteric reflux. 4. Urethral stricture disease. OPERATIONS PERFORMED: 1. Cystourethroscopy with calibration and dilation of urethral stricture (separate procedure performed for the diagnosis of stricture). 2. Cystourethroscopy with bilateral ureteral catheterization and retrograde ureteropyelography (separate procedure performed for the hematuria). 3. Interpretation of cystography. 4. Interpretation of retrograde ureteropyelography. 5. Cystourethroscopy with transurethral resection of multiple small bladder tumors, totalling over 2.5 cm total diameter treated. ANESTHESIA: General. COMPLICATIONS: None. CLINICAL SUMMARY: Marco A Fuentes is a 79-year-old man with history of recurrent bladder cancer. He also has BPH. He is status post transurethral procedure. He is aware of the risks of bleeding, infection, injury to adjacent structures, need for additional procedures, and elected to proceed. We had waited on the patient for obtaining cardiac clearance and optimization prior to the procedure. OPERATIVE PROCEDURE IN DETAIL: Informed consent was verified. Marco A Fuentes was properly identified, taken to the operating room, placed on the cystoscopy table, and anesthesia was uneventfully begun. The patient was then carefully and gently repositioned in the dorsal lithotomy position with all pressure points well padded. His genitalia were prepared and draped in usual sterile fashion. The cystoscope sheath with a visual obturator in place was atraumatically inserted into the patient's urethra, was guided unremarkable urethra to the bulbar region, where there was a tight, but short stricture. We could gently dilate across the stricture utilizing the visual obturator and the cystoscope sheath. We then went through the normal sphincteric region through the prostate bed, which was significant for relatively open prostate bed, status post transurethral resection of the prostate with minimal amount of residual and regrowth of tissue. We went into the patient's bladder, where there were heavy trabeculations noted. There was a patulous and laterally displaced right ureteral orifice and there were multiple small tumors throughout the bladder. There was also scarring from prior transurethral resections. No large tumors were identified. Contrast was injected by the cystoscope sheath in performing a cystogram. Interpretation of cystography contrast was injected in retrograde fashion via the cystoscope sheath. There was grade 2 vesicoureteric reflux noted on the right-hand side. The prostate bed was opened and had a cavity from prior transurethral resection. An 8-Tamazight catheter was then used to cannulate each ureter and retrograde ureteropyelograms were performed. Interpretation of retrograde ureteropyelography contrast was instilled in retrograde fashion bilaterally. There were no tumors, no stones, and no diverticula. Unobstructed drainage was observed bilaterally fluoroscopically. There was fullness on the right side as well as some tortuosity as a result of vesicoureteric reflex. Cold cup biopsy forceps were then utilized to resect multiple small tumors. We then utilized a Bugbee electrode to fulgurate the base of all those tumors. No additional suspicious lesions remained. Perfect hemostasis was verified. The patient's bladder was drained and the cystoscope was then withdrawn. Belladonna and opium suppository were placed revealing a larger than 40 g prostate, smooth and functional without any nodules. The patient was then uneventfully reversed from anesthesia and taken to recovery room in stable condition. There were no complications to the procedure. The patient tolerated the procedure well. Plans will be to follow the patient up in the office for uroflowmetry and bladder ultrasonography. Alfred Munson MD [place]/MODL /[id number] cc: Héctor Bradshaw MD
== END | disposition home or self-care (01) ==
LOC: OR 11:15
PROVIDERS: ATTEND Urology
DX: C67.9 Malignant neoplasm of bladder, unspecified (principal); N13.70 Vesicoureteral-reflux, unspecified; N35.912 Unspecified bulbous urethral stricture, male; N40.0 Benign prostatic hyperplasia without lower urinary tract symptoms; Z98.890 Other specified postprocedural states; N32.89 Other specified disorders of bladder; N13.8 Other obstructive and reflux uropathy; I25.10 Atherosclerotic heart disease of native coronary artery without angina pectoris; I10 Essential (primary) hypertension; R00.1 Bradycardia, unspecified; I73.9 Peripheral vascular disease, unspecified; I71.4 Abdominal aortic aneurysm, without rupture; E78.5 Hyperlipidemia, unspecified; E07.9 Disorder of thyroid, unspecified; F17.200 Nicotine dependence, unspecified, uncomplicated; Z88.6 Allergy status to analgesic agent; Z79.82 Long term (current) use of aspirin; Z79.02 Long term (current) use of antithrombotics/antiplatelets
CPT/HCPCS: 36415; 52005; 52235; 71046; 74420; 80053; 85025; 87635; 88307; 93005; C1758; J0696; J1100; J2001; J2405; Q9967

== ENCOUNTER 2019-10-31 13:13 | Emergency (ER) | payer MEDICARE, OTHER ==
[~2019-10-31] VITALS: Ht 165.1 cm; Wt 74.8 kg
[~2019-10-31 13:13] MED LIST changes: -B&O 60MG R/S 60 MG SUPP PR ONE; -CEFTRIAXONE SOD 1 GM/NS 50 ML 50 ML IV ONE; -DEXAMETHASONE SOD PHOS INJ 4 MG/ML VIAL ONE; -ETOMIDATE 2 MG/ML 10 ML INJ IV ONE; -IOPAMIDOL 300MG/ML 50ML INFUS..BTL IV ONE; -LIDOCAINE HCL 2% LOCAL INJ 5 ML SDV VIAL INJ ONE; -ONDANSETRON HCL INJ 2MG/ML 2ML 2 MG/ML VIAL ONE; -SEVOFLURANE INHAL SOLN 250 ML PEN BTL ONE
[2019-10-31] MEDS ORDERED: SODIUM CHLORIDE 0.9% 500ML 500 ML IV ONE (13:30)
[2019-10-31 13:59] LABS: BILIRUBIN,URINE NEGATIVE (NEGATIVE); CLARITY,URINE CLOUDY (CLEAR); COLOR,URINE BROWN (YELLOW); KETONES,URINE NEGATIVE (NEGATIVE); LEUKOCYTE ESTERASE ,URINE NEGATIVE (NEGATIVE); NITRITE,URINE NEGATIVE (NEGATIVE); PROTEIN,URINE DIPSTICK 1+ (NEGATIVE); URINE UROBILINOGEN 0.2 mg/dL (0.2 - 1)
[2019-10-31 14:00] LABS: BASOPHILS # (AUTO) 0.1 (0.0-0.1); EOSINOPHILS # (AUTO) 0.5 (0.0-0.4); EOSINOPHILS % 6.8 % (0.0-6.0); HEMATOCRIT 48.6 % (38.2-49.6); HEMOGLOBIN 15.7 g/dL (14.0-18.0); INR 0.9; LYMPHOCYTES # (AUTO) 2.7 (1.0-3.2); LYMPHOCYTES % 33.2 % (18.0-39.1); MEAN CORPUSCULAR HEMOGLOBIN 27.4 pg (28-32); MEAN CORPUSCULAR HGB CONC 32.3 g/dL (31-35); MEAN CORPUSCULAR VOLUME 84.7 fL (81-99); MONOCYTES # (AUTO) 0.8 (0.2-0.8); MONOCYTES % 9.4 % (4.4-11.3); NEUTROPHILS # (AUTO) 3.9 (2.1-6.9); NEUTROPHILS % 49.2 % (38.7-80.0); PLATELET COUNT 168 x10e3/uL (140-360); PROTHROMBIN TIME 12.7 seconds (11.9-14.5); RED BLOOD COUNT 5.74 x10e6/uL (4.3-5.7); RED CELL DISTRIBUTION WIDTH 14.7 % (11.7-14.4)
[2019-10-31 14:01] LABS: PARTIAL THROMBOPLASTIN TIME 33.3 seconds (23.8-35.5)
[2019-10-31 14:20] LABS: BACTERIA,URINE MANY /HPF; EPITHELIAL CELLS,URINE FEW /LPF; RBC,URINE >50 /HPF (0-5); WBC,URINE (MAN) >50 /HPF (0-5)
[2019-10-31] MEDS ORDERED: CEFTRIAXONE SOD 1 GM/NS 50 ML 50 ML IV ONE (17:00)
--- NOTE | 2019-10-31 17:22 | Emergency Department Note ---
History of Present Illnes History of Present Illness Chief Complaint: Genitourinary History of Present Illness This is a 79 year old male PATIENT SENT BY DR DIXON FOR EVALUATION OF BLOOD IN URINE. PATIENT STATES HE HAD A TURP AND A TUMOR REMOVED FROM HIS BLADDER 10/15/2019, AND A WEEK AGO STARTED HAVING BLOOD IN HIS URINE. PATIENT STATES IT WAS WORSE TODAY, RATES PAIN 2/10 WITH URINATION. Historian: Patient Arrival Mode: Car Blanking Press Operator Required: No Onset (how long ago): week(s) (1) Radiation: Reports non-radiation Severity: mild Onset quality: gradual Timing of current episode: intermittent Progression: waxing and waning Chronicity: new Context: Denies recent illness Relieving factors: none Exacerbating factors: none Associated symptoms: Reports denies other symptoms Treatments prior to arrival: none Past Medical/Family History Physician Review I have reviewed the patient's past medical and family history. Any updates have been documented here. Past Medical History Recent Fever: No Clinical Suspicion of Infectio: No New/Unexplained Change in Ment: No Past Medical History: Hypertension, Hyperlipedemia Other Medical History: SMOKER ANEURYSM IN [place] THYROIDECTOMY Other Surgery: TYROIDECTOMY TONSILECTOMY TUMOR REMOVED FROM BLADDER 10/15/2019 Social History Smoking Cessation: Never Smoker Counseling Performed: No Alcohol Use: None Any Illegal Drug Use: No TB Exposure/Symptoms: No Physically hurt or threatened: No Family History Family history of heart diseas: No Other Last Tetanus: UTD Any Pre-Existing Lines (PICC,: No Is patient up to date on immun: Yes Last Flu: utd Last Pneumovax: utd Review of Systems Review of Systems Constitutional: Reports no symptoms EENTM: Reports no symptoms Cardiovascular: Reports no symptoms Respiratory: Reports no symptoms Gastrointestinal: Reports no symptoms Genitourinary: Reports as per HPI, Reports dysuria, Reports hematuria Musculoskeletal: Reports no symptoms Integumentary: Reports no symptoms Neurological: Reports no symptoms Psychological: Reports no symptoms Endocrine: Reports no symptoms Hematological/Lymphatic: Reports no symptoms Physical Exam Related Data Allergies: Coded Allergies: iodine (Verified Allergy, Unknown, 10/31/19) Triage Vital Signs Vital Signs Date Time Temp Pulse Resp B/P (MAP) Pulse Ox O2 Delivery O2 Flow Rate FiO2 10/31/19 13:13 97.9 61 18 151/91 96 Vital signs reviewed: Yes Physical Exam CONSTITUTIONAL Constitutional: Present well-developed, Present well-nourished HENT HENT: Present normocephalic, Present atraumatic, Present oropharynx clear/moist, Present nose normal HENT L/R: Present left ext ear normal, Present right ext ear normal EYES Eyes: Reports PERRL, Reports conjunctivae normal NECK Neck: Present ROM normal PULMONARY Pulmonary: Present effort normal, Present breath sounds normal CARDIOVASCULAR Cardiovascular: Present regular rhythm, Present heart sounds normal, Present capillary refill normal, Present normal rate GASTROINTESTINAL Abdominal: Present soft, Present nontender, Present bowel sounds normal GENITOURINARY Genitourinary: Present exam deferred SKIN Skin: Present warm, Present dry MUSCULOSKELETAL Musculoskeletal: Present ROM normal NEUROLOGICAL Neurological: Present alert, Present oriented x 3, Present no gross motor or sensory deficits PSYCHOLOGICAL Psychological: Present mood/affect normal, Present judgement normal Results Laboratory Result Diagram: 10/31/19 1328 Laboratory Laboratory Tests Test 10/31/19 13:28 10/31/19 13:23 White Blood Count 7.98 x10e3/uL (4.8-10.8) Red Blood Count 5.74 x10e6/uL (4.3-5.7) Hemoglobin 15.7 g/dL (14.0-18.0) Hematocrit 48.6 % (38.2-49.6) Mean Corpuscular Volume 84.7 fL (81-99) Mean Corpuscular Hemoglobin 27.4 pg (28-32) Mean Corpuscular Hemoglobin Concent 32.3 g/dL (31-35) Red Cell Distribution Width 14.7 % (11.7-14.4) Platelet Count 168 x10e3/uL (140-360) Neutrophils (%) (Auto) 49.2 % (38.7-80.0) Lymphocytes (%) (Auto) 33.2 % (18.0-39.1) Monocytes (%) (Auto) 9.4 % (4.4-11.3) Eosinophils (%) (Auto) 6.8 % (0.0-6.0) Basophils (%) (Auto) 1.0 % (0.0-1.0) Neutrophils # (Auto) 3.9 (2.1-6.9) Lymphocytes # (Auto) 2.7 (1.0-3.2) Monocytes # (Auto) 0.8 (0.2-0.8) Eosinophils # (Auto) 0.5 (0.0-0.4) Basophils # (Auto) 0.1 (0.0-0.1) Absolute Immature Granulocyte (auto 0.03 x10e3/uL (0-0.1) Prothrombin Time 12.7 seconds (11.9-14.5) Prothromb Time International Ratio 0.90 Activated Partial Thromboplast Time 33.3 seconds (23.8-35.5) Urine Color Brown (YELLOW) Urine Clarity Cloudy (CLEAR) Urine pH 5.5 (5 - 7) Urine Specific [place] >=1.030 (1.010-1.025) Urine Protein 1+ (NEGATIVE) Urine Glucose (UA) Negative (NEGATIVE) Urine Ketones Negative (NEGATIVE) Urine Blood Large (NEGATIVE) Urine Nitrite Negative (NEGATIVE) Urine Bilirubin Negative (NEGATIVE) Urine Urobilinogen 0.2 mg/dL (0.2 - 1) Urine Leukocyte Esterase Negative (NEGATIVE) Urine RBC >50 /HPF (0-5) Urine WBC >50 /HPF (0-5) Urine Epithelial Cells Few /LPF (NONE) Urine Bacteria Many /HPF (NONE) Lab results reviewed: Yes Assessment & Plan Medical Decision Making MDM PT SENT BY DR DIXON - I SPOKE WITH HIM, WILL CHECK CBC, CHEM, PT/PTT, UA/CX. DID BEDSIDE BLADDER SCAN AFTER PT VOIDED AND IT WAS ZERO ML'S. R/O UTI, ANEMIA, COAGULOPATHY, THROMBOCYTOPENIA Reassessment Reassessment D/W DR DIXON AGAIN RE: RESULTS, PT TO BE DISCHARGED ON CEFTIN, F/U WITH ZACK Assessment & Plan Final Impression: (1) UTI (urinary tract infection) Depart Disposition: HOME, SELF-CARE Last Vital Signs Date Time Temp Pulse Resp B/P (MAP) Pulse Ox O2 Delivery O2 Flow Rate FiO2 10/31/19 16:24 79 18 148/84 98 10/31/19 13:13 97.9 Home Meds Reported Medications Acetaminophen (ACETAMINOPHEN) 325 Mg Tablet, 325 MG PO PRN for 5 Days, TAB 10/11/19 Oxybutynin Chloride (OXYBUTYNIN CHLORIDE) 5 Mg Tablet, 5 MG PO HS, #30 TAB 10/11/19 Clopidogrel Bisulfate* (PLAVIX) 75 Mg Tablet, 75 MG PO DAILY, #30 TAB 10/11/19 Aspirin (ASPIR 81) 81 Mg Tablet.dr, 81 MG PO HS 04/29/19 Isosorbide Mononitrate (ISOSORBIDE MONONITRATE) 20 Mg Tablet, 40 MG PO HS, #30 TAB 10/28/18 Finasteride (FINASTERIDE) 5 Mg Tablet, 5 MG PO DAILY, #30 TAB 10/28/18 Simvastatin (SIMVASTATIN) 40 Mg Tablet, 40 MG PO DAILY, #30 TAB 10/28/18 Tamsulosin Hcl* (FLOMAX*) 0.4 Mg Cap, 0.4 MG PO HS, #30 CAP 10/27/18 Lisinopril (LISINOPRIL) 10 Mg Tablet, 20 MG PO DAILY, #30 TAB 10/27/18 Medications in the ED Sodium Chloride 500 ml @ 0 mls/hr Q0M ONCE IV Last administered on 10/31/19at 14:32; Admin Dose 999 MLS/HR; Start 10/31/19 at 13:30; Stop 10/31/19 at 13:31; Status DC Ceftriaxone Sodium 50 ml @ 100 mls/hr ONCE ONCE IV ; Start 10/31/19 at 17:00; Stop 10/31/19 at 17:29 RICKY ARCE MD Oct 31, 2019 17:22
[2019-10-31 20:16] LABS: ANION GAP 15.9 mmol/L (8-16); BLOOD UREA NITROGEN 19 mg/dL (7-26); BUN/CREATININE RATIO 20 (6-25); CALCIUM 9.5 mg/dL (8.4-10.2); CARBON DIOXIDE 23 mmol/L (22-29); CHLORIDE 106 mmol/L (98-107); CREATININE, SERUM 0.93 mg/dL (0.72-1.25); EST GLOMERULAR FILTRATION RATE > 60 ML/MIN (60-); GLUCOSE 88 mg/dL (74-118); POTASSIUM 3.9 mmol/L (3.5-5.1); SODIUM 141 mmol/L (136-145)
[2019-10-31 20:17] LABS: ALANINE AMINOTRANSFERASE 13 IU/L (0-55); ALBUMIN 4.1 g/dL (3.5-5.0); ALBUMIN/GLOBULIN RATIO 1.5 (0.8-2.0); ALKALINE PHOSPHATASE 65 IU/L (40-150)
== END 2019-10-31 17:48 | disposition home or self-care (01) ==
LOC: ER 13:13
DX: N39.0 Urinary tract infection, site not specified (principal); R31.9 Hematuria, unspecified; I10 Essential (primary) hypertension; E78.5 Hyperlipidemia, unspecified; F17.210 Nicotine dependence, cigarettes, uncomplicated
CPT/HCPCS: 36415; 80053; 81001; 85025; 85610; 85730; 87086; 93005; 99284; J0696; J7040

== ENCOUNTER 2019-11-07 09:44 | Emergency (ER) | payer MEDICARE, OTHER ==
[~2019-11-07] VITALS: Ht 165.1 cm; Wt 74.8 kg
--- NOTE | 2019-11-07 09:58 | NUR ---
NOTIFIED PRIMARY NURSE OF PT IN ROOM, PT GIVEN GOWN TO CHANGE.
[2019-11-07 10:24] LABS: BASOPHILS # (AUTO) 0.1 (0.0-0.1); BASOPHILS % 1.1 % (0.0-1.0); EOSINOPHILS # (AUTO) 0.2 (0.0-0.4); HEMOGLOBIN 15.8 g/dL (14.0-18.0); LYMPHOCYTES # (AUTO) 1.8 (1.0-3.2); LYMPHOCYTES % 25.9 % (18.0-39.1); MEAN CORPUSCULAR HEMOGLOBIN 27.4 pg (28-32); MEAN CORPUSCULAR HGB CONC 32.2 g/dL (31-35); MEAN CORPUSCULAR VOLUME 85.1 fL (81-99); MONOCYTES # (AUTO) 0.7 (0.2-0.8); MONOCYTES % 9.2 % (4.4-11.3); NEUTROPHILS # (AUTO) 4.3 (2.1-6.9); NEUTROPHILS % 60.5 % (38.7-80.0); PLATELET COUNT 151 x10e3/uL (140-360); RED BLOOD COUNT 5.76 x10e6/uL (4.3-5.7); RED CELL DISTRIBUTION WIDTH 15.1 % (11.7-14.4)
[2019-11-07] MEDS ORDERED: HYDROCODONE/APAP 5MG-325MG TAB PO ONE (10:30)
[2019-11-07] MEDS ORDERED: OXYBUTYNIN CHLORIDE 5 MG TAB PO ONE (10:30)
[2019-11-07 10:41] LABS: INR 0.9; PROTHROMBIN TIME 12.7 seconds (11.9-14.5)
[2019-11-07 10:42] LABS: PARTIAL THROMBOPLASTIN TIME 34.4 seconds (23.8-35.5)
[2019-11-07 10:53] LABS: ALANINE AMINOTRANSFERASE 13 IU/L (0-55); ALBUMIN 3.8 g/dL (3.5-5.0); ALBUMIN/GLOBULIN RATIO 1.4 (0.8-2.0); ALKALINE PHOSPHATASE 61 IU/L (40-150); ANION GAP 13.9 mmol/L (8-16); BLOOD UREA NITROGEN 15 mg/dL (7-26); BUN/CREATININE RATIO 18 (6-25); CALCIUM 9.2 mg/dL (8.4-10.2); CARBON DIOXIDE 23 mmol/L (22-29); CHLORIDE 105 mmol/L (98-107); CREATINE KINASE 35 IU/L (30-200); CREATININE, SERUM 0.83 mg/dL (0.72-1.25); EST GLOMERULAR FILTRATION RATE > 60 ML/MIN (60-); GLUCOSE 106 mg/dL (74-118); MAGNESIUM 1.7 MG/DL (1.3-2.1); POTASSIUM 3.9 mmol/L (3.5-5.1); SODIUM 138 mmol/L (136-145)
--- NOTE | 2019-11-07 11:12 | Emergency Department Note ---
History of Present Illnes History of Present Illness Chief Complaint: Genitourinary History of Present Illness This is a 79 year old male one wk ago urinating blood resolved with stopping ASA/Plavix; today states this am onset urinating blood again. pt states he just started back on plavix and asa yesterday. hx bladder tumors. Historian: Patient, Family Member Arrival Mode: Car Net Sql Developer Required: No Onset (how long ago): week(s) (1) Location: urine Quality: hematuria Radiation: Reports non-radiation Severity: moderate Onset quality: sudden Duration (how long): day(s) (today) Timing of current episode: intermittent Progression: waxing and waning Chronicity: recurrent Context: Denies recent illness Relieving factors: none Exacerbating factors: none Associated symptoms: Reports denies other symptoms Treatments prior to arrival: none, other (also on Ceftin since being seen here 1 week ago) Past Medical/Family History Physician Review I have reviewed the patient's past medical and family history. Any updates have been documented here. Past Medical History Recent Fever: No Clinical Suspicion of Infectio: No New/Unexplained Change in Ment: No Past Medical History: Hypertension, Hyperlipedemia Other Medical History: SMOKER ANEURYSM IN [place] THYROIDECTOMY Other Surgery: TYROIDECTOMY TONSILECTOMY TUMOR REMOVED FROM BLADDER 10/15/2019 Social History Smoking Cessation: Never Smoker Counseling Performed: No Alcohol Use: None Any Illegal Drug Use: No TB Exposure/Symptoms: No Physically hurt or threatened: No Other Last Tetanus: UTD Any Pre-Existing Lines (PICC,: No Is patient up to date on immun: Yes Last Flu: UTD Last Pneumovax: UTD Review of Systems Review of Systems Constitutional: Reports no symptoms EENTM: Reports no symptoms Cardiovascular: Reports no symptoms Respiratory: Reports no symptoms Gastrointestinal: Reports no symptoms Genitourinary: Reports as per HPI, Reports hematuria Musculoskeletal: Reports no symptoms Integumentary: Reports no symptoms Neurological: Reports no symptoms Psychological: Reports no symptoms Endocrine: Reports no symptoms Hematological/Lymphatic: Reports no symptoms Physical Exam Related Data Allergies: Coded Allergies: iodine (Verified Allergy, Unknown, 10/31/19) Triage Vital Signs Vital Signs Date Time Temp Pulse Resp B/P (MAP) Pulse Ox O2 Delivery O2 Flow Rate FiO2 11/07/19 09:51 97.9 94 22 170/113 96 Vital signs reviewed: Yes Physical Exam CONSTITUTIONAL Constitutional: Present well-developed, Present well-nourished HENT HENT: Present normocephalic, Present atraumatic, Present oropharynx clear/moist, Present nose normal HENT L/R: Present left ext ear normal, Present right ext ear normal EYES Eyes: Reports PERRL, Reports conjunctivae normal NECK Neck: Present ROM normal PULMONARY Pulmonary: Present effort normal, Present breath sounds normal CARDIOVASCULAR Cardiovascular: Present regular rhythm, Present heart sounds normal, Present capillary refill normal, Present normal rate GASTROINTESTINAL Abdominal: Present soft, Present nontender, Present bowel sounds normal GENITOURINARY Genitourinary: Present exam deferred SKIN Skin: Present warm, Present dry MUSCULOSKELETAL Musculoskeletal: Present ROM normal NEUROLOGICAL Neurological: Present alert, Present oriented x 3, Present no gross motor or sensory deficits PSYCHOLOGICAL Psychological: Present mood/affect normal, Present judgement normal Results Laboratory Result Diagram: 11/07/19 1013 11/07/19 1013 Laboratory Laboratory Tests Test 11/07/19 10:13 White Blood Count 7.10 x10e3/uL (4.8-10.8) Red Blood Count 5.76 x10e6/uL (4.3-5.7) Hemoglobin 15.8 g/dL (14.0-18.0) Hematocrit 49.0 % (38.2-49.6) Mean Corpuscular Volume 85.1 fL (81-99) Mean Corpuscular Hemoglobin 27.4 pg (28-32) Mean Corpuscular Hemoglobin Concent 32.2 g/dL (31-35) Red Cell Distribution Width 15.1 % (11.7-14.4) Platelet Count 151 x10e3/uL (140-360) Neutrophils (%) (Auto) 60.5 % (38.7-80.0) Lymphocytes (%) (Auto) 25.9 % (18.0-39.1) Monocytes (%) (Auto) 9.2 % (4.4-11.3) Eosinophils (%) (Auto) 3.0 % (0.0-6.0) Basophils (%) (Auto) 1.1 % (0.0-1.0) Neutrophils # (Auto) 4.3 (2.1-6.9) Lymphocytes # (Auto) 1.8 (1.0-3.2) Monocytes # (Auto) 0.7 (0.2-0.8) Eosinophils # (Auto) 0.2 (0.0-0.4) Basophils # (Auto) 0.1 (0.0-0.1) Absolute Immature Granulocyte (auto 0.02 x10e3/uL (0-0.1) Prothrombin Time 12.7 seconds (11.9-14.5) Prothromb Time International Ratio 0.90 Activated Partial Thromboplast Time 34.4 seconds (23.8-35.5) Sodium Level 138 mmol/L (136-145) Potassium Level 3.9 mmol/L (3.5-5.1) Chloride Level 105 mmol/L (98-107) Carbon Dioxide Level 23 mmol/L (22-29) Anion Gap 13.9 mmol/L (8-16) Blood Urea Nitrogen 15 mg/dL (7-26) Creatinine 0.83 mg/dL (0.72-1.25) Estimat Glomerular Filtration Rate > 60 ML/MIN (60-) BUN/Creatinine Ratio 18 (6-25) Glucose Level 106 mg/dL (74-118) Calcium Level 9.2 mg/dL (8.4-10.2) Magnesium Level 1.7 MG/DL (1.3-2.1) Total Bilirubin 0.5 mg/dL (0.2-1.2) Aspartate Amino Transf (AST/SGOT) 12 IU/L (5-34) Alanine Aminotransferase (ALT/SGPT) 13 IU/L (0-55) Alkaline Phosphatase 61 IU/L (40-150) Creatine Kinase 35 IU/L (30-200) Total Protein 6.5 g/dL (6.5-8.1) Albumin 3.8 g/dL (3.5-5.0) Globulin 2.7 g/dL (2.3-3.5) Albumin/Globulin Ratio 1.4 (0.8-2.0) Lab results reviewed: Yes Imaging Imaging results reviewed: Yes Impressions Procedure: [id number] CT/CT ABDOMEN/PELVIS WO Exam Date: 11/07/19 Exam Time: 1140 REPORT STATUS: Signed EXAM: CT abdomen/pelvis without contrast INDICATION: Stone protocol. COMPARISON: CTA Abdomen/Pelvis with contrast 09/08/2018. TECHNIQUE: The abdomen and pelvis was scanned utilizing a multidetector helical scanner from the lung base to the upper thigh without administration of IV Contrast. Sagittal and coronal multiplanar as well as volume rendering reformations were obtained. Routine protocol was performed. IV CONTRAST: None. ORAL CONTRAST: None. RADIATION DOSE: Total DLP: 500.8 mGy*cm Dose modulation, iterative reconstruction, and/or weight based adjustment of the mA/kV was utilized to reduce the radiation dose to as low as reasonably achievable. FINDINGS: LINES and TUBES: None. LOWER THORAX: Coronary atherosclerosis. HEPATOBILIARY: There is a 1.2 cm left hepatic lobe cyst. No biliary ductal dilation. GALLBLADDER: No radio-opaque stones or sludge. No wall thickening. SPLEEN: No splenomegaly. Calcified splenic granulomas. PANCREAS: No focal masses or ductal dilatation. ADRENALS: Unchanged 1.7 cm left adrenal adenoma. KIDNEYS/URETERS: Mild right hydronephrosis. No solid mass lesions. Unchanged 1.7 cm hyperdense right upper pole renal cyst. There is a 1.1 cm left midpole renal cyst. Punctate 2 mm left mid pole renal stone. GI TRACT: No abnormal distention, wall thickening, or evidence of bowel obstruction. Colonic diverticulosis without evidence of diverticulitis. PELVIS: Distended bladder containing heterogeneous hyperdensity, compatible with hemorrhage. Mild stranding surrounding the bladder. VASCULAR FINDINGS: Status post interval endovascular repair of infrarenal abdominal aortic aneurysm. Interval decrease in size of aneurysm sac, measuring up to 5.2 x 3.6 cm, previously 5.3 x 5.6 cm. The aneurysm is incompletely evaluated in the absence of contrast. There is a replaced right hepatic artery. Moderate atherosclerotic calcifications within the abdominal aorta and branch vessels. LYMPH NODES: No lymphadenopathy. PERITONEUM / RETROPERITONEUM: No free air or fluid. BONES: Unremarkable. SOFT TISSUES: Fat-containing left inguinal hernia. IMPRESSION: Distended bladder containing heterogeneous hyperdensity, compatible with hemorrhage, cannot exclude underlying mass. Mild surrounding inflammatory changes. The patient reportedly has a history of bladder neoplasm, which cannot be evaluated on this noncontrast study. Mild right hydronephrosis. Nonobstructing 2 mm left mid pole renal stone. Signed by: Dr. Sj Martinez MD on 11/07/2019 1:59 PM Assessment & Plan Medical Decision Making MDM cbc, chem, cardiacs, pt/ptt, ua/cx, ct abd/pelvis - r/o leukocytosis, electrolyte abnl, renal insuff, coagulopathy, uti. Bladder scan shows just over 100 cc PVR so no retention - I spoke with Dr Henriquez - if H/H and CT normal, DC home with instructions to hold Plavix/ASA Reassessment Reassessment i spoke with dr henriquez - pt to dc home, hold anticoagulants, continue full course of Ceftin, f/u hampel Assessment & Plan Final Impression: (1) Hematuria Depart Disposition: HOME, SELF-CARE Last Vital Signs Date Time Temp Pulse Resp B/P (MAP) Pulse Ox O2 Delivery O2 Flow Rate FiO2 11/07/19 09:51 97.9 94 22 170/113 96 Home Meds Reported Medications Acetaminophen (ACETAMINOPHEN) 325 Mg Tablet, 325 MG PO PRN for 5 Days, TAB 10/11/19 Oxybutynin Chloride (OXYBUTYNIN CHLORIDE) 5 Mg Tablet, 5 MG PO HS, #30 TAB 10/11/19 Clopidogrel Bisulfate* (PLAVIX) 75 Mg Tablet, 75 MG PO DAILY, #30 TAB 10/11/19 Aspirin (ASPIR 81) 81 Mg Tablet., 81 MG PO HS 04/29/19 Isosorbide Mononitrate (ISOSORBIDE MONONITRATE) 20 Mg Tablet, 40 MG PO HS, #30 TAB 10/28/18 Finasteride (FINASTERIDE) 5 Mg Tablet, 5 MG PO DAILY, #30 TAB 10/28/18 Simvastatin (SIMVASTATIN) 40 Mg Tablet, 40 MG PO DAILY, #30 TAB 10/28/18 Tamsulosin Hcl* (FLOMAX*) 0.4 Mg Cap, 0.4 MG PO HS, #30 CAP 10/27/18 Lisinopril (LISINOPRIL) 10 Mg Tablet, 20 MG PO DAILY, #30 TAB 10/27/18 Medications in the ED Acetaminophen/ Hydrocodone Bitart 1 ea ONCE ONCE PO ; Start 11/07/19 at 10:30; Stop 11/07/19 at 10:46; Status DC Oxybutynin Chloride 5 mg ONCE ONCE PO ; Start 11/07/19 at 10:30; Stop 11/07/19 at 10:46; Status DC RICKY ARCE MD Nov 07, 2019 11:12
--- NOTE | 2019-11-07 14:03 | Diagnostic Imaging Report ---
ADDENDUM #1 ADDENDUM: Status post interval endovascular repair of infrarenal abdominal aortic aneurysm with aortobiiliac stent graft. Interval decrease in size of the aneurysm sac, measuring up to 4.8 cm in maximal dimension, previously 5.2 cm. Aneurysm is incompletely evaluated in the absence of contrast. Recommend follow-up per clinical protocol. Signed by: Dr. Sj Martinez MD on 11/07/2019 3:36 PM ORIGINAL REPORT EXAM: CT abdomen/pelvis without contrast INDICATION: Stone protocol. COMPARISON: CTA Abdomen/Pelvis with contrast 09/08/2018. TECHNIQUE: The abdomen and pelvis was scanned utilizing a multidetector helical scanner from the lung base to the upper thigh without administration of IV Contrast. Sagittal and coronal multiplanar as well as volume rendering reformations were obtained. Routine protocol was performed. IV CONTRAST: None. ORAL CONTRAST: None. RADIATION DOSE: Total DLP: 500.8 mGy*cm Dose modulation, iterative reconstruction, and/or weight based adjustment of the mA/kV was utilized to reduce the radiation dose to as low as reasonably achievable. FINDINGS: LINES and TUBES: None. LOWER THORAX: Coronary atherosclerosis. HEPATOBILIARY: There is a 1.2 cm left hepatic lobe cyst. No biliary ductal dilation. GALLBLADDER: No radio-opaque stones or sludge. No wall thickening. SPLEEN: No splenomegaly. Calcified splenic granulomas. PANCREAS: No focal masses or ductal dilatation. ADRENALS: Unchanged 1.7 cm left adrenal adenoma. KIDNEYS/URETERS: Mild right hydronephrosis. No solid mass lesions. Unchanged 1.7 cm hyperdense right upper pole renal cyst. There is a 1.1 cm left midpole renal cyst. Punctate 2 mm left mid pole renal stone. GI TRACT: No abnormal distention, wall thickening, or evidence of bowel obstruction. Colonic diverticulosis without evidence of diverticulitis. PELVIS: Distended bladder containing heterogeneous hyperdensity, compatible with hemorrhage. Mild stranding surrounding the bladder. VASCULAR FINDINGS: Status post interval endovascular repair of infrarenal abdominal aortic aneurysm. Interval decrease in size of aneurysm sac, measuring up to 5.2 x 3.6 cm, previously 5.3 x 5.6 cm. The aneurysm is incompletely evaluated in the absence of contrast. There is a replaced right hepatic artery. Moderate atherosclerotic calcifications within the abdominal aorta and branch vessels. LYMPH NODES: No lymphadenopathy. PERITONEUM / RETROPERITONEUM: No free air or fluid. BONES: Unremarkable. SOFT TISSUES: Fat-containing left inguinal hernia. IMPRESSION: Distended bladder containing heterogeneous hyperdensity, compatible with hemorrhage, cannot exclude underlying mass. Mild surrounding inflammatory changes. The patient reportedly has a history of bladder neoplasm, which cannot be evaluated on this noncontrast study. Mild right hydronephrosis. Nonobstructing 2 mm left mid pole renal stone. Signed by: Dr. Sj Martinez MD on 11/07/2019 1:59 PM
[2019-11-07] MEDS ORDERED: MORPHINE SULFATE 2 MG/ML SYR 1ML IV NR (14:45)
[2019-11-07] MEDS ORDERED: ONDANSETRON HCL INJ 2MG/ML 2ML 2 MG/ML VIAL IV NR (15:00)
== END 2019-11-07 15:00 | disposition home or self-care (01) ==
LOC: ER 09:44
DX: R31.9 Hematuria, unspecified (principal); R73.9 Hyperglycemia, unspecified; I10 Essential (primary) hypertension; E78.5 Hyperlipidemia, unspecified
CPT/HCPCS: 36415; 74176; 80053; 82550; 82553; 82948; 83735; 84484; 85025; 85610; 85730; 99284

== ENCOUNTER → 2019-12-13 | Day surgery (SDC) | payer MEDICARE, OTHER ==
[2019-12-08 10:12] LABS: BASOPHILS # (AUTO) 0.1 (0.0-0.1); BASOPHILS % 1.3 % (0.0-1.0); EOSINOPHILS # (AUTO) 0.3 (0.0-0.4); EOSINOPHILS % 5.1 % (0.0-6.0); HEMATOCRIT 42.8 % (38.2-49.6); HEMOGLOBIN 13.8 g/dL (14.0-18.0); LYMPHOCYTES # (AUTO) 1.8 (1.0-3.2); MEAN CORPUSCULAR HEMOGLOBIN 27.5 pg (28-32); MEAN CORPUSCULAR HGB CONC 32.2 g/dL (31-35); MEAN CORPUSCULAR VOLUME 85.4 fL (81-99); MONOCYTES # (AUTO) 0.5 (0.2-0.8); MONOCYTES % 8.5 % (4.4-11.3); NEUTROPHILS # (AUTO) 2.8 (2.1-6.9); NEUTROPHILS % 51.7 % (38.7-80.0); PLATELET COUNT 150 x10e3/uL (140-360); RED BLOOD COUNT 5.01 x10e6/uL (4.3-5.7); RED CELL DISTRIBUTION WIDTH 14.8 % (11.7-14.4)
[2019-12-08 10:29] LABS: ANION GAP 12.5 mmol/L (8-16); BLOOD UREA NITROGEN 19 mg/dL (7-26); BUN/CREATININE RATIO 17 (6-25); CALCIUM 9.1 mg/dL (8.4-10.2); CARBON DIOXIDE 25 mmol/L (22-29); CHLORIDE 108 mmol/L (98-107); CREATININE, SERUM 1.14 mg/dL (0.72-1.25); EST GLOMERULAR FILTRATION RATE > 60 ML/MIN (60-); GLUCOSE 167 mg/dL (74-118); POTASSIUM 3.5 mmol/L (3.5-5.1); SODIUM 142 mmol/L (136-145)
[~2019-12-13] MED LIST changes: +B&O 60MG R/S 60 MG SUPP PR ONE; +CEFTRIAXONE SOD 1 GM/NS 50 ML 50 ML IV ONE; +ETOMIDATE 2 MG/ML 10 ML INJ IV ONE; +IOPAMIDOL 300MG/ML 50ML INFUS..BTL IV ONE; +LIDOCAINE HCL 2% LOCAL INJ 5 ML SDV VIAL INJ ONE; +ONDANSETRON HCL INJ 2MG/ML 2ML 2 MG/ML VIAL ONE; +PROPOFOL IV EMULSION 10 MG/ML 20 ML VIAL ONE; +SEVOFLURANE INHAL SOLN 250 ML PEN BTL ONE
[2019-12-13 08:35] VITALS: BP 139/90
--- NOTE | 2019-12-22 04:07 | Operative Report ---
DATE OF PROCEDURE: 12/13/2019 SURGEON: Alfred Munson MD POSTOPERATIVE DIAGNOSES: 1. Bladder cancer. 2. Gross hematuria. POSTOPERATIVE DIAGNOSES: 1. Bladder cancer. 2. Gross hematuria. 3. Recurrent bulbar urethral stricture. OPERATIONS PERFORMED: 1. Cystourethroscopy with bilateral ureteral catheterization and retrograde ureteropyelography (separate procedure performed for hematuria). 2. Interpretation of retrograde ureteropyelography. 3. Cystourethroscopy with directed bladder biopsies (separate procedure performed to determine whether any residual bladder cancer remained). ANESTHESIA: General. COMPLICATIONS: None. CLINICAL SUMMARY: Marco A Fuentes is a 79-year-old male with recurrent bladder cancer. He was brought to evaluate the location of the prior bladder cancer resection by performing biopsies under second-look cystoscopy. He is aware of the risks of bleeding, infection, injury to adjacent structures, need for additional procedures and elected to proceed. OPERATIVE PROCEDURE IN DETAIL: Informed consent was verified, Marco A Fuentes was preoperatively identified and taken to the operating room and placed on the cystoscopy table in supine position. Anesthesia was uneventfully begun. The patient was then carefully and gently repositioned in dorsal lithotomy position with all pressure points well padded. His genitalia were prepared and draped in usual sterile fashion. The cystoscope sheath with visual obturator in place was atraumatically inserted patient's urethra, it was guided unremarkable to distal urethra to the bulbar region where there was a stricture. The stricture was calibrated to approximately 16 and 18-Cymraes in size and dilated to 22.5-Cymraes in size utilizing the visual obturator in place and a cystoscope sheath. We then went through the normal sphincteric region and went through the prostate bed, which was significant for being status post transurethral resection of the prostate and was relatively open and . We went to the patient's bladder, where we identified a small diverticulum. There were significant trabeculations throughout. The left ureteral orifice was unremarkable. The right ureteral orifice was very patulous with a prior history of vesicoureteric reflux. There was a location of the prior bladder tumor that was resected. There was erythema present and incomplete healing. A ureteral catheter was used to cannulate each ureter and retrograde ureteral pyelograms were performed. Interpretation of retrograde ureteropyelography contrast was instilled in retrograde fashion bilaterally. The left side is relatively unremarkable except for some dilation of the distal ureter culminating at the level of the patient's ureterovesical junction. The right side exhibited hydroureteronephrosis consistent with chronic hydronephrosis present and there is coarse lateral displacement of the patient's right ureteral orifice as was documented previously. Nevertheless, unobstructed drainage was observed bilaterally fluoroscopically. Cold cup biopsy forceps were then utilized to perform biopsies of the most recent tumor base. We then utilized the Bugbee electrode to fully fulgurate this region and its surrounding. Excellent hemostasis was achieved. The patient's bladder was drained. Cystoscope was withdrawn. Belladonna and opium suppository were placed revealing a large greater than 40 g prostate, smooth and non-fluctuant without any nodules. The patient was then uneventfully reversed from anesthesia and taken to the recovery room in stable condition. There were no complications of the procedure, the patient tolerated the procedure well. Plan will be to follow the patient up in the office and of course on long-term basis. Alfred Munson MD [place]/MODL /[id number] cc: Héctor Bradshaw MD
== END | disposition home or self-care (01) ==
LOC: OR 05:00
PROVIDERS: ATTEND Urology
DX: C67.9 Malignant neoplasm of bladder, unspecified (principal); N35.812 Other bulbous urethral stricture, male; N13.30 Unspecified hydronephrosis; N32.3 Diverticulum of bladder; N32.89 Other specified disorders of bladder; I25.10 Atherosclerotic heart disease of native coronary artery without angina pectoris; I10 Essential (primary) hypertension; E78.5 Hyperlipidemia, unspecified; D57.3 Sickle-cell trait; F32.9 Major depressive disorder, single episode, unspecified; F17.210 Nicotine dependence, cigarettes, uncomplicated; Z01.812 Encounter for preprocedural laboratory examination; Z11.59 Encounter for screening for other viral diseases; Z79.82 Long term (current) use of aspirin; Z95.5 Presence of coronary angioplasty implant and graft
CPT/HCPCS: 36415; 52214; 74420; 80048; 85025; 88305; C1758; J0696; J2001; J2405; J2704; Q9967; U0002; 88304

== ENCOUNTER → 2020-11-01 | Outpatient (CLI) | payer MEDICARE ==
[~2020-11-01] MED LIST changes: -B&O 60MG R/S 60 MG SUPP PR ONE; -CEFTRIAXONE SOD 1 GM/NS 50 ML 50 ML IV ONE; -ETOMIDATE 2 MG/ML 10 ML INJ IV ONE; -IOPAMIDOL 300MG/ML 50ML INFUS..BTL IV ONE; +IOPAMIDOL 370 MG/ML 200 ML INFUS..BTL INJ ONE; -LIDOCAINE HCL 2% LOCAL INJ 5 ML SDV VIAL INJ ONE; -ONDANSETRON HCL INJ 2MG/ML 2ML 2 MG/ML VIAL ONE; -PROPOFOL IV EMULSION 10 MG/ML 20 ML VIAL ONE; -SEVOFLURANE INHAL SOLN 250 ML PEN BTL ONE; +SODIUM CHLORIDE 0.9% 50ML 50 ML ONE
== END ==
LOC: CT 15:02
PROVIDERS: ATTEND Urology
DX: C67.9 Malignant neoplasm of bladder, unspecified (principal)
CPT/HCPCS: 74177; Q9967

== ENCOUNTER 2023-08-25 08:37 | Inpatient (IN) | payer MEDICARE ==
[2023-08-22 10:41] LABS: BASOPHILS # (AUTO) 0.1 (0.0-0.1); EOSINOPHILS # (AUTO) 0.3 (0.0-0.4); EOSINOPHILS % 3.5 % (0.0-6.0); HEMOGLOBIN 15.2 g/dL (14.0-18.0); LYMPHOCYTES # (AUTO) 2.2 (1.0-3.2); LYMPHOCYTES % 27.6 % (18.0-39.1); MEAN CORPUSCULAR HEMOGLOBIN 27.4 pg (28-32); MEAN CORPUSCULAR HGB CONC 32.3 g/dL (31-35); MEAN CORPUSCULAR VOLUME 84.7 fL (81-99); MONOCYTES # (AUTO) 0.7 (0.2-0.8); MONOCYTES % 9.3 % (4.4-11.3); NEUTROPHILS # (AUTO) 4.6 (2.1-6.9); NEUTROPHILS % 58.2 % (38.7-80.0); PLATELET COUNT 159 x10e3/uL (140-360); RED BLOOD COUNT 5.55 x10e6/uL (4.3-5.7); RED CELL DISTRIBUTION WIDTH 15.3 % (11.7-14.4); WHITE BLOOD COUNT 7.94 x10e3/uL (4.8-10.8)
[2023-08-22 11:03] LABS: ALBUMIN 3.7 g/dL (3.5-5.0); ALBUMIN/GLOBULIN RATIO 1.1 (0.8-2.0); ANION GAP 14.7 mmol/L (8-16); BILIRUBIN,TOTAL 0.9 mg/dL (0.2-1.2); CALCIUM 9.5 mg/dL (8.4-10.2); CREATININE, SERUM 1.76 mg/dL (0.72-1.25); POTASSIUM 3.7 mmol/L (3.5-5.1); TOTAL PROTEIN 7.1 g/dL (6.5-8.1)
[~2023-08-25] VITALS: Ht 165.1 cm; Wt 80.7 kg
[2023-08-25] VITALS (15 sets, daily range): BP systolic 155–225; BP diastolic 76–137; PULSE 59–100; RESP 7–20; TEMP 97.5–98; O2SAT 92–99
[~2023-08-25 08:37] MED LIST changes: +D3-5000125 MCG; -IOPAMIDOL 370 MG/ML 200 ML INFUS..BTL INJ ONE; -SODIUM CHLORIDE 0.9% 50ML 50 ML ONE
[2023-08-25] MEDS: LACTATED RINGER'S 1,000 ML ONE (08:51)
[2023-08-25] MEDS: CEFTRIAXONE 1 GM VIAL ONE (08:51)
[2023-08-25] MEDS ORDERED: MORPHINE SULFATE/PF 1 MG/1 ML 10ML VIAL ONE (11:46)
[2023-08-25] MEDS ORDERED: ACETAMINOPHEN 1000 MG/100 ML IV ONE (13:36)
[2023-08-25] MEDS ORDERED: SEVOFLURANE INHAL SOLN 250 ML PEN BTL ONE (13:36)
[2023-08-25] MEDS ORDERED: LIDOCAINE HCL 2% LOCAL INJ 5 ML SDV VIAL INJ ONE (13:36)
[2023-08-25] MEDS ORDERED: DEXAMETHASONE SOD PHOS INJ 4 MG/ML SDV ONE (13:36)
[2023-08-25] MEDS ORDERED: ROCURONIUM BROMIDE 10 MG/ML 5ML VIAL IV ONE (13:36)
[2023-08-25] MEDS ORDERED: KETAMINE 50MG/5ML SYR ONE (13:36)
[2023-08-25] MEDS ORDERED: PROPOFOL IV EMULSION 10 MG/ML 20 ML VIAL ONE (13:36)
[2023-08-25] MEDS ORDERED: ONDANSETRON HCL INJ 2MG/ML 2ML 2 MG/ML VIAL ONE (13:36)
[2023-08-25] MEDS ORDERED: SUGAMMADEX SODIUM 200 MG/2 ML VIAL IV ONE (13:36)
[2023-08-25] MEDS ORDERED: FENTANYL CITRATE/PF 100MCG/2 ML INJ ONE (16:02)
[2023-08-25] MEDS ORDERED: MIDAZOLAM HCL 2 MG/2 ML VIAL ONE (16:02)
[2023-08-25] MEDS ORDERED: NALOXONE HCL INJ 0.4 MG/ML AMP IV PRN (16:15)
[2023-08-25] MEDS ORDERED: ONDANSETRON HCL INJ 2MG/ML 2ML 2 MG/ML VIAL IV PRN (16:15)
[2023-08-25 16:20] LABS: BASOPHILS # (AUTO) 0.1 (0.0-0.1); BASOPHILS % 0.6 % (0.0-1.0); EOSINOPHILS # (AUTO) 0.1 (0.0-0.4); EOSINOPHILS % 0.6 % (0.0-6.0); HEMATOCRIT 42.5 % (38.2-49.6); HEMOGLOBIN 14.1 g/dL (14.0-18.0); LYMPHOCYTES # (AUTO) 1.1 (1.0-3.2); LYMPHOCYTES % 10.4 % (18.0-39.1); MEAN CORPUSCULAR HGB CONC 33.2 g/dL (31-35); MEAN CORPUSCULAR VOLUME 84.5 fL (81-99); MONOCYTES # (AUTO) 0.5 (0.2-0.8); MONOCYTES % 4.4 % (4.4-11.3); NEUTROPHILS # (AUTO) 8.9 (2.1-6.9); NEUTROPHILS % 83.6 % (38.7-80.0); PLATELET COUNT 121 x10e3/uL (140-360); RED BLOOD COUNT 5.03 x10e6/uL (4.3-5.7); RED CELL DISTRIBUTION WIDTH 15.3 % (11.7-14.4); WHITE BLOOD COUNT 10.58 x10e3/uL (4.8-10.8)
[2023-08-25] MEDS: FENTANYL CITRATE/PF 100MCG/2 ML INJ ONE (16:25)
[2023-08-25 16:39] LABS: ANION GAP 14.2 mmol/L (8-16); CALCIUM 8.4 mg/dL (8.4-10.2); CREATININE, SERUM 1.33 mg/dL (0.72-1.25); POTASSIUM 4.2 mmol/L (3.5-5.1)
[2023-08-25] MEDS: MORPHINE SULFATE 1 MG/ML 30ML PCA IV PRN (16:50)
[2023-08-25] MEDS ORDERED: SODIUM CHLORIDE 0.9% 100 ML ONE (17:00)
[2023-08-25] MEDS ORDERED: DEXMEDETOMIDINE HCL 2 ML ONE (17:00)
[2023-08-25] MEDS ORDERED: BUPIVACAINE 0.25% 30ML SDV ONE (17:00)
[2023-08-25] MEDS: HYDRALAZINE HCL 20 MG/ML VIAL IV PRN (18:10)
[2023-08-25] MEDS: HYDROMORPHONE 1MG/1ML INJ IV ONE (18:10)
[2023-08-25] MEDS: SODIUM CHLORIDE 0.9% 250ML IRRIG IR SCH (18:11)
[2023-08-25] MEDS: D5.45%NS/KCL 20MEQ 1,000 ML IV SCH (19:27)
[2023-08-25] MEDS: DIPHENHYDRAMINE HCL INJ 50 MG/ML VIAL IM PRN (19:38)
[2023-08-25] MEDS: ACETAMINOPHEN 1000 MG/100 ML IV PRN (22:37)
[2023-08-25] MEDS ORDERED: LABETALOL HCL 5 MG/ML 20ML VIAL IV PRN (23:00)
[2023-08-25] MEDS: NICOTINE 14 MG/EA PATCH TOP SCH (23:40)
[2023-08-26] VITALS (27 sets, daily range): BP systolic 148–193; BP diastolic 64–93; PULSE 63–96; RESP 9–22; TEMP 97.4–98.1; O2SAT 92–100
[2023-08-26] MEDS: LABETALOL HCL 5 MG/ML 20ML VIAL IV PRN (00:54)
[2023-08-26 06:27] LABS: BASOPHILS % 0.3 % (0.0-1.0); EOSINOPHILS % 0.2 % (0.0-6.0); HEMOGLOBIN 14.9 g/dL (14.0-18.0); LYMPHOCYTES # (AUTO) 1.1 (1.0-3.2); LYMPHOCYTES % 8.6 % (18.0-39.1); MEAN CORPUSCULAR HEMOGLOBIN 27.5 pg (28-32); MEAN CORPUSCULAR HGB CONC 32.4 g/dL (31-35); MONOCYTES # (AUTO) 1.5 (0.2-0.8); MONOCYTES % 11.7 % (4.4-11.3); NEUTROPHILS # (AUTO) 9.9 (2.1-6.9); NEUTROPHILS % 78.9 % (38.7-80.0); PLATELET COUNT 134 x10e3/uL (140-360); RED BLOOD COUNT 5.41 x10e6/uL (4.3-5.7); RED CELL DISTRIBUTION WIDTH 15.3 % (11.7-14.4); WHITE BLOOD COUNT 12.49 x10e3/uL (4.8-10.8)
[2023-08-26 06:55] LABS: ANION GAP 15.1 mmol/L (8-16); CALCIUM 8.7 mg/dL (8.4-10.2); CREATININE, SERUM 1.27 mg/dL (0.72-1.25); POTASSIUM 4.1 mmol/L (3.5-5.1)
[2023-08-26] MEDS ORDERED: LIDOCAINE 2%/ EPINEPHRINE 20ML MDV ONE (14:49)
[2023-08-26] MEDS: ALBUTEROL/IPRATROPIUM 3 ML NEB NEB ONE (21:21)
[2023-08-27] VITALS (10 sets, daily range): BP systolic 148–177; BP diastolic 71–107; PULSE 56–90; RESP 15–20; TEMP 97.4–99.2; O2SAT 94–97
[2023-08-27 05:36] LABS: BASOPHILS % 0.3 % (0.0-1.0); EOSINOPHILS # (AUTO) 0.1 (0.0-0.4); EOSINOPHILS % 0.5 % (0.0-6.0); HEMATOCRIT 45.9 % (38.2-49.6); HEMOGLOBIN 14.8 g/dL (14.0-18.0); LYMPHOCYTES # (AUTO) 1.2 (1.0-3.2); LYMPHOCYTES % 9.6 % (18.0-39.1); MEAN CORPUSCULAR HEMOGLOBIN 27.4 pg (28-32); MEAN CORPUSCULAR HGB CONC 32.2 g/dL (31-35); MONOCYTES # (AUTO) 1.6 (0.2-0.8); MONOCYTES % 12.5 % (4.4-11.3); NEUTROPHILS # (AUTO) 9.8 (2.1-6.9); NEUTROPHILS % 76.7 % (38.7-80.0); PLATELET COUNT 113 x10e3/uL (140-360); RED CELL DISTRIBUTION WIDTH 15.8 % (11.7-14.4); WHITE BLOOD COUNT 12.76 x10e3/uL (4.8-10.8)
[2023-08-27 06:07] LABS: ANION GAP 12.9 mmol/L (8-16); CALCIUM 8.8 mg/dL (8.4-10.2); CREATININE, SERUM 1.3 mg/dL (0.72-1.25); POTASSIUM 4.9 mmol/L (3.5-5.1)
[2023-08-27] MEDS ORDERED: ONDANSETRON HCL 4 MG ORAL DISINTEGRATING TAB PO PRN (10:30)
[2023-08-27] MEDS ORDERED: BISACODYL 10 MG SUPP PR PRN (14:00)
[2023-08-27] MEDS: BISACODYL 10 MG SUPP PR ONE (17:00)
[2023-08-27] MEDS: ACETAMINOPHEN 1000 MG/100 ML IV SCH (17:50)
[2023-08-27] MEDS: SENNA-S TABLET PO SCH (17:50)
[2023-08-27] MEDS: ACETAMINOPHEN/CODEINE 300MG - 30MG TAB PO PRN (19:59)
[2023-08-28] VITALS (8 sets, daily range): BP systolic 93–150; BP diastolic 64–96; PULSE 77–96; RESP 18–19; TEMP 98.2–98.9; O2SAT 96–100
[2023-08-28 05:49] LABS: BASOPHILS # (AUTO) 0.1 (0.0-0.1); BASOPHILS % 0.5 % (0.0-1.0); EOSINOPHILS # (AUTO) 0.3 (0.0-0.4); EOSINOPHILS % 2.8 % (0.0-6.0); HEMATOCRIT 41.3 % (38.2-49.6); HEMOGLOBIN 14.2 g/dL (14.0-18.0); LYMPHOCYTES # (AUTO) 1.4 (1.0-3.2); LYMPHOCYTES % 12.9 % (18.0-39.1); MEAN CORPUSCULAR HGB CONC 34.4 g/dL (31-35); MEAN CORPUSCULAR VOLUME 81.5 fL (81-99); MONOCYTES # (AUTO) 1.1 (0.2-0.8); MONOCYTES % 10.2 % (4.4-11.3); NEUTROPHILS # (AUTO) 7.7 (2.1-6.9); NEUTROPHILS % 73.3 % (38.7-80.0); PLATELET COUNT 119 x10e3/uL (140-360); RED BLOOD COUNT 5.07 x10e6/uL (4.3-5.7); RED CELL DISTRIBUTION WIDTH 15.3 % (11.7-14.4); WHITE BLOOD COUNT 10.55 x10e3/uL (4.8-10.8)
[2023-08-28] MEDS: PHENAZOPYRIDINE HCL 100 MG TAB PO PRN (06:01)
[2023-08-28 06:33] LABS: ALBUMIN 2.8 g/dL (3.5-5.0); ALBUMIN/GLOBULIN RATIO 0.9 (0.8-2.0); ANION GAP 14.3 mmol/L (8-16); BILIRUBIN,TOTAL 1.5 mg/dL (0.2-1.2); CALCIUM 8.8 mg/dL (8.4-10.2); CREATININE, SERUM 1.3 mg/dL (0.72-1.25); POTASSIUM 4.3 mmol/L (3.5-5.1)
[2023-08-28] MEDS: OXYBUTYNIN CHLORIDE 5 MG TAB PO SCH (09:46)
[2023-08-28] MEDS: HYDROCODONE/APAP 7.5MG-325MG 1 EA TAB PO PRN ×2 (09:46→13:33)
[2023-08-28] MEDS: FINASTERIDE 5 MG TAB PO SCH (09:46)
[2023-08-28] MEDS: ISOSORBIDE MONONITRATE 30 MG TAB CR PO SCH (09:47)
[2023-08-28] MEDS: LISINOPRIL 20 MG TAB PO SCH (09:49)
[2023-08-28] MEDS: SIMVASTATIN 40 MG TAB PO SCH (20:48)
[2023-08-28] MEDS: TAMSULOSIN HCL 0.4 MG CAP PO SCH (20:48)
[2023-08-29] VITALS (7 sets, daily range): BP systolic 107–121; BP diastolic 66–89; PULSE 50–101; RESP 18–21; TEMP 97.9–98.7; O2SAT 96–100
[2023-08-29 05:41] LABS: BASOPHILS # (AUTO) 0.1 (0.0-0.1); BASOPHILS % 0.7 % (0.0-1.0); EOSINOPHILS # (AUTO) 0.3 (0.0-0.4); EOSINOPHILS % 3.2 % (0.0-6.0); HEMATOCRIT 38.3 % (38.2-49.6); HEMOGLOBIN 13.1 g/dL (14.0-18.0); LYMPHOCYTES # (AUTO) 1.1 (1.0-3.2); LYMPHOCYTES % 12.8 % (18.0-39.1); MEAN CORPUSCULAR HEMOGLOBIN 28.1 pg (28-32); MEAN CORPUSCULAR HGB CONC 34.2 g/dL (31-35); MEAN CORPUSCULAR VOLUME 82.2 fL (81-99); MONOCYTES # (AUTO) 1.1 (0.2-0.8); MONOCYTES % 12.9 % (4.4-11.3); NEUTROPHILS # (AUTO) 6.1 (2.1-6.9); NEUTROPHILS % 70.2 % (38.7-80.0); PLATELET COUNT 132 x10e3/uL (140-360); RED BLOOD COUNT 4.66 x10e6/uL (4.3-5.7); RED CELL DISTRIBUTION WIDTH 15.3 % (11.7-14.4); WHITE BLOOD COUNT 8.65 x10e3/uL (4.8-10.8)
[2023-08-29 06:23] LABS: ANION GAP 15.2 mmol/L (8-16); CALCIUM 8.6 mg/dL (8.4-10.2); CREATININE, SERUM 1.32 mg/dL (0.72-1.25); POTASSIUM 4.2 mmol/L (3.5-5.1)
[2023-08-29] MEDS ORDERED: CEFUROXIME250 MG PO (12:57)
[2023-08-29] MEDS ORDERED: SENOKOT-S TABL1 EACH PO (13:01)
[2023-08-29] MEDS ORDERED: HYDROCODON-ACE1 EA12 PO (13:04)
== END 2023-08-29 20:00 | disposition home or self-care (01) | DRG 657 ==
LOC: OR 08:37 → PACU V 14:50 → ICU 17:28 → MED/SURG 08-26 18:21 → MED/SURG2 08-27 18:24
PROVIDERS: ADMIT Internal Medicine; ATTEND Internal Medicine
PROC: 0TT10ZZ Resection of Left Kidney, Open Approach (ICD-10-PCS; 2023-08-25)
PROC: 0TT70ZZ Resection of Left Ureter, Open Approach (ICD-10-PCS; 2023-08-25)
PROC: 07BC0ZX Excision of Pelvis Lymphatic, Open Approach, Diagnostic (ICD-10-PCS; 2023-08-25)
PROC: 0TJB8ZZ Inspection of Bladder, Via Natural or Artificial Opening Endoscopic (ICD-10-PCS; 2023-08-25)
PROC: 02HV33Z Insertion of Infusion Device into Superior Vena Cava, Percutaneous Approach (ICD-10-PCS; principal; 2023-08-25 11:47)
PROC: 0T9B70Z Drainage of Bladder with Drainage Device, Via Natural or Artificial Opening (ICD-10-PCS; 2023-08-25 11:47)
DX: C79.19 Secondary malignant neoplasm of other urinary organs (principal); N13.39 Other hydronephrosis; I13.10 Hypertensive heart and chronic kidney disease without heart failure, with stage 1 through stage 4 chronic kidney disease, or unspecified chronic kidney disease; N40.0 Benign prostatic hyperplasia without lower urinary tract symptoms; N18.30 Chronic kidney disease, stage 3 unspecified; J42 Unspecified chronic bronchitis; I25.10 Atherosclerotic heart disease of native coronary artery without angina pectoris; E78.5 Hyperlipidemia, unspecified; I73.9 Peripheral vascular disease, unspecified; E66.9 Obesity, unspecified; Z68.29 Body mass index [BMI] 29.0-29.9, adult; Z79.82 Long term (current) use of aspirin; Z95.5 Presence of coronary angioplasty implant and graft; Z85.51 Personal history of malignant neoplasm of bladder; Z91.041 Radiographic dye allergy status; Z87.891 Personal history of nicotine dependence; Z80.42 Family history of malignant neoplasm of prostate
CPT/HCPCS: 36415; 36569; 71045; 71046; 74018; 80048; 80053; 83735; 85025; 86850; 86900; 86920; 88304; 88307; 88342; 93005; 94640; 94799; 99252; J0360; J0690; J0696; J1100; J1170; J1200; J2001; J2250; J2270; J2405; J7050

== ENCOUNTER → 2023-09-25 | Outpatient (REF) | payer MEDICARE ==
[~2023-09-25] MED LIST changes: +CEFUROXIME250 MG PO; +HYDROCODON-ACE1 EA12 PO; +IOPAMIDOL 370 MG/ML 100 ML INFUS..BTL INJ ONE; +SENOKOT-S TABL1 EACH PO; +SODIUM CHLORIDE 0.9% 500ML 500 ML ONE
== END ==
LOC: CT 10:35
PROVIDERS: ATTEND Urology
DX: N13.30 Unspecified hydronephrosis (principal)
CPT/HCPCS: 72193; J7040; Q9967

== ENCOUNTER 2024-01-11 10:18 | Emergency (ER) | payer MEDICARE ==
[~2024-01-11] VITALS: Ht 165.1 cm; Wt 64.4 kg
[~2024-01-11 10:18] MED LIST changes: -IOPAMIDOL 370 MG/ML 100 ML INFUS..BTL INJ ONE; -SODIUM CHLORIDE 0.9% 500ML 500 ML ONE
[2024-01-11 12:10] VITALS: PULSE 66; RESP 12; TEMP 98.3; O2SAT 97
[2024-01-11] MEDS ORDERED: FUROSEMIDE40 MG PO (12:23)
== END 2024-01-11 12:26 | disposition home or self-care (01) ==
LOC: FSED 10:22
DX: R19.04 Left lower quadrant abdominal swelling, mass and lump (principal); E27.9 Disorder of adrenal gland, unspecified; N28.1 Cyst of kidney, acquired; I10 Essential (primary) hypertension; E78.5 Hyperlipidemia, unspecified; I25.10 Atherosclerotic heart disease of native coronary artery without angina pectoris
CPT/HCPCS: 74176; 80048; 80076; 81003; 85025; 99284

== ENCOUNTER → 2025-01-01 | Day surgery (SDC) | payer MEDICARE ==
[~2025-01-01] MED LIST changes: +ASPIRIN81 MG PO; +FENTANYL CITRATE/PF 100MCG/2 ML INJ ONE; +FUROSEMIDE40 MG PO; +LIDOCAINE HCL 2% LOCAL INJ 5 ML SDV VIAL INJ ONE; +PROPOFOL IV EMULSION 10 MG/ML 20 ML VIAL ONE
[2025-01-01 10:43] LABS: BASOPHILS % 1.0 % (0.0-1.0); EOSINOPHILS % 6.4 % (0.0-6.0); LYMPHOCYTES % 29.2 % (18.0-39.1); MONOCYTES % 7.5 % (4.4-11.3); NEUTROPHILS % 55.6 % (38.7-80.0); RED CELL DISTRIBUTION WIDTH 15.0 % (11.7-14.4)
[2025-01-01] MEDS: SODIUM CHLORIDE 0.9% 1000ML 1,000 ML ONE (10:46)
[2025-01-01] MEDS: CEFTRIAXONE 1 GM VIAL ONE (10:47)
[2025-01-01 10:57] LABS: EST GLOMERULAR FILTRATION RATE 41.0 ML/MIN (>=60)
[2025-01-01 11:36] VITALS: TEMP 98.2
[2025-01-01] MEDS: FENTANYL CITRATE/PF 100MCG/2 ML INJ ONE (11:50)
[2025-01-01] MEDS: ACETAMINOPHEN/CODEINE 300MG - 30MG TAB ONE (12:07)
[2025-01-01 12:30] VITALS: BP 150/98; PULSE 55; RESP 16; O2SAT 100
== END | disposition home or self-care (01) ==
LOC: OR 08:08
PROVIDERS: ATTEND Urology
DX: C67.0 Malignant neoplasm of trigone of bladder (principal); N13.71 Vesicoureteral-reflux without reflux nephropathy; N35.812 Other bulbous urethral stricture, male; N32.89 Other specified disorders of bladder; N13.30 Unspecified hydronephrosis; N40.1 Benign prostatic hyperplasia with lower urinary tract symptoms; R39.14 Feeling of incomplete bladder emptying; N39.0 Urinary tract infection, site not specified; N32.3 Diverticulum of bladder; I12.9 Hypertensive chronic kidney disease with stage 1 through stage 4 chronic kidney disease, or unspecified chronic kidney disease; C66.2 Malignant neoplasm of left ureter; N18.9 Chronic kidney disease, unspecified; N32.81 Overactive bladder; N39.41 Urge incontinence; D44.10 Neoplasm of uncertain behavior of unspecified adrenal gland; R80.9 Proteinuria, unspecified; Z90.5 Acquired absence of kidney; D41.01 Neoplasm of uncertain behavior of right kidney; Z87.442 Personal history of urinary calculi; I25.10 Atherosclerotic heart disease of native coronary artery without angina pectoris; I25.2 Old myocardial infarction; E78.00 Pure hypercholesterolemia, unspecified; Z91.041 Radiographic dye allergy status; Z79.82 Long term (current) use of aspirin; Z79.899 Other long term (current) drug therapy; Z95.5 Presence of coronary angioplasty implant and graft; Z80.42 Family history of malignant neoplasm of prostate
CPT/HCPCS: 36415; 52240; 74420; 80053; 85025; 87086; 87186; 88307; 93005; C1758; J0696; J2003; J2704; J3010; J7030; 88305